=== PATIENT | female | born 1945 | race Caucasian/White ===

== ENCOUNTER 2017-03-26 21:09 | Inpatient (IN) | payer OTHER, MEDICARE ==
[~2017-03-26] VITALS: Ht 165.1 cm; Wt 112.8 kg
[2017-03-26 21:14] VITALS: PULSE 132; RESP 18; O2SAT 98
[2017-03-26 21:23] VITALS: BP 129/58; PULSE 133; RESP 17; O2SAT 98
[2017-03-26] MEDS ORDERED: METF1000 PO (21:34)
[2017-03-26] MEDS ORDERED: BENZ100 PO (21:34)
[2017-03-26] MEDS ORDERED: VENTAER INH (21:34)
[2017-03-26] MEDS ORDERED: MAGN400T24 (21:34)
[2017-03-26] MEDS ORDERED: INSU1INJ13 SQ (21:34)
[2017-03-26] MEDS ORDERED: APIX5TAB PO (21:34)
[2017-03-26] MEDS ORDERED: LISI20TA3 PO (21:34)
[2017-03-26] MEDS ORDERED: CARD180C5 PO (21:34)
[2017-03-26] MEDS ORDERED: LEVO500T8 PO (21:34)
[2017-03-26] MEDS ORDERED: SIMV20TA PO (21:34)
[2017-03-26 21:40] VITALS: RESP 19; O2SAT 98
[2017-03-26] MEDS ORDERED: DILTIAZEM HCL 25 MG/5 ML VIAL IV PUSH ONE (21:45)
[2017-03-26] MEDS: DILTIAZEM INJ 125 MG in SODIUM CHLORIDE 0.9% INJ 100 ML IV PRN (21:51)
[2017-03-26 21:55] LABS: AUTOMATED NEUTROPHIL # 4.9 TH/MM3 (1.8-7.7); BASOPHIL % 0.2 % (0.0-2.0); EOSINOPHIL # 0.1 TH/MM3 (0-0.4); EOSINOPHIL % 1.4 % (0.0-4.0); HEMATOCRIT 35.2 % (35.0-46.0); HEMOGLOBIN 10.8 GM/DL (11.6-15.3); LYMPH % 23.5 % (9.0-44.0); LYMPHOCYTE # 1.7 TH/MM3 (1.0-4.8); MEAN CELL VOLUME 63.4 FL (80.0-100.0); MEAN CORPUSCULAR HEMOGLOBIN 19.4 PG (27.0-34.0); MEAN CORPUSCULAR HGB CONC 30.6 % (32.0-36.0); MEAN PLATELET VOLUME 8.9 FL (7.0-11.0); MONO % 9.3 % (0.0-8.0); MONOCYTE # 0.7 TH/MM3 (0-0.9); NEUT % 65.6 % (16.0-70.0); PLATELET COUNT 134 TH/MM3 (150-450); RED BLOOD COUNT 5.55 MIL/MM3 (4.00-5.30); RED CELL DISTRIBUTION WIDTH 19.3 % (11.6-17.2); WHITE BLOOD COUNT 7.4 TH/MM3 (4.0-11.0)
[2017-03-26 22:09] LABS: BICARBONATE 23.2 MEQ/L (21.0-32.0); BLOOD UREA NITROGEN 37 MG/DL (7-18); CALCIUM 8.9 MG/DL (8.5-10.1); CHLORIDE 106 MEQ/L (98-107); CREATININE 1.98 MG/DL (0.50-1.00); GLOMERULAR FILTRATION RATE 25 ML/MIN (>89); GLUCOSE,RANDOM 93 MG/DL (74-106); INTERNATIONAL NORMALIZED RATIO 1.1 RATIO; MAGNESIUM 2.3 MG/DL (1.5-2.5); PROTHROMBIN TIME - PATIENT 11.4 SEC (9.8-11.6); SODIUM (NA) 140 MEQ/L (136-145)
[2017-03-26 22:13] LABS: TROPONIN I LESS THAN 0.02 NG/ML (0.02-0.05)
--- NOTE | 2017-03-26 22:13 | RADRPT ---
EXAM DATE/TIME: 03/26/2017 22:02 [place] COMPARISON: No previous studies available for comparison. INDICATIONS : Short of breath. MEDICAL HISTORY : A-fib. Bronchitis. SURGICAL HISTORY : None. ENCOUNTER: Initial ACUITY: 1 day PAIN SCORE: 3/10 LOCATION: Bilateral chest FINDINGS: The lungs are clear without infiltrate, nodule, or mass. There is no appreciable pleural effusion fo r technique. Heart and mediastinum are unremarkable. CONCLUSION: No acute cardiopulmonary disease. Ryan Damico MD on March 26, 2017 at 22:11 Board Certified Radiologist. This report was verified electronically.
--- NOTE | 2017-03-26 22:19 | PD ---
HPI Chief Complaint: Cardiac Complaint Time Seen by Provider: 21:23 Travel History International Travel<30 days: No Contact w/Intl Traveler<30days: No Traveled to known affect area: No History of Present Illness HPI This is a 72-year-old female with a history of hypertension, hyperlipidemia diabetes mellitus, who presents here with A. fib with RVR. Patient was scheduled to have an ablation at [facility] today however they postponed because she is currently being treated for bronchitis with antibiotics. Patient reports palpitations and shortness of breath. She denies any chest pain , chest pressure. Currently she has a heart rate in the 120s 130s. She is currently taking diltiazem. PFSH Past Medical History Atrial Fibrillation: Yes Diabetes: Yes Patient Takes Glucophage: Yes Hypertension: Yes ?: Not Past Surgical History Hysterectomy: Yes Neurologic Surgery: Yes (LAMINECTOMY) Social History Alcohol Use: No Tobacco Use: No Substance Use: No Allergies-Medications (Allergen,Severity, Reaction): Coded Allergies: No Known Allergies (Unverified , 03/26/17) Reported Meds & Prescriptions Reported Meds & Active Scripts Active Reported Tresiba Flextouch Pen Inj (Insulin Degludec Inj) 600 unit/3 ML Pen 1 Units SQ Eliquis (Apixaban) 5 Mg Tab 5 Mg PO BID Magnesium (Magnesium Oxide) 400 Mg Tablet Simvastatin 20 Mg Tab 20 Mg PO DAILY Lisinopril-Hctz 20-25 Mg Tab 1 Tab PO DAILY Metformin (Metformin HCl) 1,000 Mg Tab 1,000 Mg PO BIDPC Cardizem CD 24 HR (Diltiazem CD 24 HR) 180 Mg Caper 180 Mg PO DAILY Ventolin Hfa 18 GM Inh (Albuterol Sulfate) 90 Mcg/Act Aer 2 Puff INH Q4H PRN Tessalon Perles (Benzonatate) 100 Mg Cap 200 Mg PO TID PRN Levofloxacin 500 Mg Tablet 500 Mg PO DAILY Review of Systems Except as stated in HPI: all other systems reviewed are Neg General / Constitutional: No: Fever, Chills HENT: No: Headaches, Lightheadedness Cardiovascular: Positive: Palpitations, Irregular Rhythm, No: Chest Pain or Discomfort Respiratory: Positive: Shortness of Breath, No: Cough Gastrointestinal: No: Nausea, Vomiting, Abdominal Pain Genitourinary: No: Frequency, Dysuria Musculoskeletal: No: Weakness, Pain Neurologic: No: Weakness, Dizziness, Headache Physical Exam Narrative GENERAL: Developed well-nourished female in no acute respiratory distress. SKIN: Focused skin assessment warm/dry. HEAD: Atraumatic. Normocephalic. EYES: Pupils equal and round. No scleral icterus. No injection or drainage. ENT: No nasal bleeding or discharge. Mucous membranes pink and moist. NECK: Trachea midline. No JVD. CARDIOVASCULAR: Irregularly irregular with a rate in the 130s. No murmur appreciated. RESPIRATORY: No accessory muscle use. Clear to auscultation. Breath sounds equal bilaterally. ABDOMEN: Hepatic and splenic margins not palpable. MUSCULOSKELETAL: No obvious deformities. No clubbing. No cyanosis. No edema. NEUROLOGICAL: Awake and alert. No obvious cranial nerve deficits. Motor grossly within normal limits. Normal speech. PSYCHIATRIC: Appropriate mood and affect; insight and judgment normal. Data Data Last Documented VS Vital Signs Date Time Temp Pulse Resp B/P (MAP) Pulse Ox O2 Delivery O2 Flow Rate FiO2 03/26/17 21:51 124 128/68 03/26/17 21:40 19 98 Room Air Orders Orders Complete Blood Count With Diff (03/26/17 21:29) Basic Metabolic Panel (Bmp) (03/26/17 21:29) Ckmb (Isoenzyme) Profile (03/26/17 21:29) Troponin I (03/26/17 21:29) Prothrombin Time / Inr (Pt) (03/26/17 21:29) Act Partial Throm Time (Ptt) (03/26/17 21:29) Magnesium (Mg) (03/26/17 21:29) Chest, Single Ap (03/26/17 21:29) Iv Access Insert/Monitor (03/26/17 21:29) Ecg Monitoring (03/26/17 21:29) Oximetry (03/26/17 21:29) Diltiazem Inj (Cardizem Inj) (03/26/17 21:30) Diltiazem Inj (Cardizem Inj) (03/26/17 21:45) Sodium Chlor 0.9% 1000 Ml Inj (Ns 1000 M (03/26/17 23:00) Labs Laboratory Tests Test 03/26/17 21:40 White Blood Count 7.4 TH/MM3 Red Blood Count 5.55 MIL/MM3 Hemoglobin 10.8 GM/DL Hematocrit 35.2 % Mean Corpuscular Volume 63.4 FL Mean Corpuscular Hemoglobin 19.4 PG Mean Corpuscular Hemoglobin Concent 30.6 % Red Cell Distribution Width 19.3 % Platelet Count 134 TH/MM3 Mean Platelet Volume 8.9 FL Neutrophils (%) (Auto) 65.6 % Lymphocytes (%) (Auto) 23.5 % Monocytes (%) (Auto) 9.3 % Eosinophils (%) (Auto) 1.4 % Basophils (%) (Auto) 0.2 % Neutrophils # (Auto) 4.9 TH/MM3 Lymphocytes # (Auto) 1.7 TH/MM3 Monocytes # (Auto) 0.7 TH/MM3 Eosinophils # (Auto) 0.1 TH/MM3 Basophils # (Auto) 0.0 TH/MM3 CBC Comment DIFF FINAL Differential Comment Prothrombin Time 11.4 SEC Prothromb Time International Ratio 1.1 RATIO Activated Partial Thromboplast Time 31.0 SEC Blood Urea Nitrogen 37 MG/DL Creatinine 1.98 MG/DL Random Glucose 93 MG/DL Calcium Level 8.9 MG/DL Magnesium Level 2.3 MG/DL Sodium Level 140 MEQ/L Potassium Level 4.5 MEQ/L Chloride Level 106 MEQ/L Carbon Dioxide Level 23.2 MEQ/L Anion Gap 11 MEQ/L Estimat Glomerular Filtration Rate 25 ML/MIN Total Creatine Kinase 51 U/L Troponin I LESS THAN 0.02 NG/ML MDM Medical Decision Making Medical Screen Exam Complete: Yes Emergency Medical Condition: Yes Differential Diagnosis A. fib with RVR versus metabolic drainage been versus anemia versus sinus tachycardia Narrative Course 72-year-old female with a history of A. fib, as stated with complaints of palpitations and shortness of breath. The patient has A. fib with RVR. She's been placed on diltiazem drip. She's also been given a bolus prior to the drip. She'll be admitted to the hospital. Her it security project manager Dr. Daily. She is noted to have renal insufficiency. Cardiac enzymes are within normal limits. His was discussed with Dr. Xie, [facility], who agrees with the above admission. She was given 1 L of IV fluid as it does look like she possibly has prerenal azotemia as well as renal insufficiency. Diagnosis Primary Impression: Atrial fibrillation with rapid ventricular response Additional Impressions: Acute on chronic renal insufficiency Diabetes mellitus Hypertension Admitting Information Admitting Physician Requests: Admit Dino Corado MD Mar 26, 2017 22:19
[2017-03-26] MEDS ORDERED: SODIUM CHLOR 0.9% 1000 ML INJ 1,000 ML IV ONE (23:00)
[2017-03-26] MEDS ORDERED: MAGNESIUM HYDROXIDE SUSP 30 ML CUP PO PRN (23:30)
[2017-03-26] MEDS ORDERED: DEXTROSE 50% IN WATER 50 ML VIAL(D50) IV PUSH PRN (23:30)
[2017-03-26] MEDS ORDERED: ACETAMINOPHEN 325 MG TAB PO PRN (23:30)
[2017-03-26] MEDS ORDERED: GLUCAGON 1 MG/ML VIAL OTHER PRN (23:30)
[2017-03-26] MEDS ORDERED: SENNOSIDES 8.6 MG TAB PO PRN (23:30)
[2017-03-26] MEDS ORDERED: SODIUM CHLORIDE 0.9% FLUSH 10 ML FLUSH IV FLUSH PRN (23:30)
[2017-03-26] MEDS ORDERED: ONDANSETRON HCL 4 MG/2 ML VIAL IVP PRN (23:30)
[2017-03-26] MEDS ORDERED: NALOXONE HCL 0.4 MG/ML AMP IV PUSH PRN (23:30)
[2017-03-26] MEDS ORDERED: LACTULOSE SYRUP 20 GM/30 ML CUP PO PRN (23:30)
[2017-03-26] MEDS ORDERED: BISACODYL 10 MG SUPP RECTAL PRN (23:30)
--- NOTE | 2017-03-26 23:30 | HHI.HP ---
[facility] Primary Care Physician Radha Duke M.D. Admission Diagnosis afib with rvr, acute on chronic renal insufficiency, htn, dm Diagnoses: Travel History International Travel<30 Days: No Contact w/Intl Traveler <30 Da: No Traveled to Known Affected Are: No History of Present Illness 72-year-old female with a past medical history significant for atrial fibrillation anticoagulated on Eliquis, insulin-dependent diabetes mellitus, hypertension and hyperlipidemia presents to the emergency department for evaluation of atrial fibrillation. The patient reports that she awoke around 2 AM this morning with palpitations. She endorses associated shortness of breath and dizziness. Denies any chest pain/pressure. The patient is currently taking Levaquin for a bronchitis with improvement in her symptoms. She was scheduled to have an ablation done at [place] today which was canceled secondary to her bronchitis. Laboratory values are remarkable for a BUN/creatinine of 37/ 1.98 (baseline creatinine 0.87 done in 2014). Troponin negative. EKG showed atrial fibrillation with rapid ventricular response, no ST segment elevations or depressions. Vital signs on arrival: Pulse 132, respiratory rate 18, blood pressure 129/58, pulse ox 98% on room air. Review of Systems Denies fever or chills Denies blurry vision, otorrhea, rhinorrhea Denies sore throat and cough Positive heart palpitations and shortness of breath No abdominal pain Denies constipation/diarrhea/nausea/vomiting Denies muscle pain/weakness No rashes Past Family Social History Past Medical History Atrial fibrillation anticoagulated on Eliquis Insulin-dependent diabetes mellitus Hypertension Hyperlipidemia Past Surgical History Knee replacement 3 Right femur fracture Partial hysterectomy Laminectomy Reported Medications Reported Meds & Active Scripts Active Reported Tresiba Flextouch Pen Inj (Insulin Degludec Inj) 600 unit/3 ML Pen 1 Units SQ Eliquis (Apixaban) 5 Mg Tab 5 Mg PO BID Magnesium (Magnesium Oxide) 400 Mg Tablet Simvastatin 20 Mg Tab 20 Mg PO DAILY Lisinopril-Hctz 20-25 Mg Tab 1 Tab PO DAILY Metformin (Metformin HCl) 1,000 Mg Tab 1,000 Mg PO BIDPC Cardizem CD 24 HR (Diltiazem CD 24 HR) 180 Mg Caper 180 Mg PO DAILY Ventolin Hfa 18 GM Inh (Albuterol Sulfate) 90 Mcg/Act Aer 2 Puff INH Q4H PRN Tessalon Perles (Benzonatate) 100 Mg Cap 200 Mg PO TID PRN Levofloxacin 500 Mg Tablet 500 Mg PO DAILY Allergies: Coded Allergies: No Known Allergies (Unverified , 03/26/17) Family History Mother with coronary artery disease. Social History Denies alcohol, tobacco and illicit drugs Physical Exam Vital Signs Vital Signs Date Time Temp Pulse Resp B/P (MAP) Pulse Ox O2 Delivery O2 Flow Rate FiO2 03/26/17 21:51 124 128/68 03/26/17 21:40 19 98 Room Air 03/26/17 21:24 133 17 98 Room Air 03/26/17 21:23 133 17 129/58 (81) 98 03/26/17 21:14 132 18 98 Physical Exam GENERAL: female lying in bed SKIN: No rashes, ecchymoses or lesions. Cool and dry. HEAD: Atraumatic. Normocephalic. No temporal or scalp tenderness. EYES: Pupils equal round and reactive. Extraocular motions intact. No scleral icterus. No injection or drainage. ENT: Nose without bleeding, purulent drainage or septal hematoma. Throat without erythema, tonsillar hypertrophy or exudate. Uvula midline. Airway patent. NECK: Trachea midline. No JVD or lymphadenopathy. Supple, nontender, no meningeal signs. CARDIOVASCULAR: Tachycardic. Irregularly irregular rhythm without murmurs, gallops, or rubs. RESPIRATORY: Clear to auscultation. Breath sounds equal bilaterally. No wheezes , rales, or rhonchi. GASTROINTESTINAL: Abdomen soft, non-tender, nondistended. No hepato-splenomegaly , or palpable masses. No guarding. MUSCULOSKELETAL: Extremities without clubbing, cyanosis, or edema. No joint tenderness, effusion, or edema noted. No calf tenderness. NEUROLOGICAL: Awake and alert. Cranial nerves II through XII intact. Motor and sensory grossly within normal limits. Normal speech. Laboratory Laboratory Tests Test 03/26/17 21:40 White Blood Count 7.4 Red Blood Count 5.55 Hemoglobin 10.8 Hematocrit 35.2 Mean Corpuscular Volume 63.4 Mean Corpuscular Hemoglobin 19.4 Mean Corpuscular Hemoglobin Concent 30.6 Red Cell Distribution Width 19.3 Platelet Count 134 Mean Platelet Volume 8.9 Neutrophils (%) (Auto) 65.6 Lymphocytes (%) (Auto) 23.5 Monocytes (%) (Auto) 9.3 Eosinophils (%) (Auto) 1.4 Basophils (%) (Auto) 0.2 Neutrophils # (Auto) 4.9 Lymphocytes # (Auto) 1.7 Monocytes # (Auto) 0.7 Eosinophils # (Auto) 0.1 Basophils # (Auto) 0.0 CBC Comment DIFF FINAL Differential Comment Prothrombin Time 11.4 Prothromb Time International Ratio 1.1 Activated Partial Thromboplast Time 31.0 Blood Urea Nitrogen 37 Creatinine 1.98 Random Glucose 93 Calcium Level 8.9 Magnesium Level 2.3 Sodium Level 140 Potassium Level 4.5 Chloride Level 106 Carbon Dioxide Level 23.2 Anion Gap 11 Estimat Glomerular Filtration Rate 25 Total Creatine Kinase 51 Troponin I LESS THAN 0.02 Result Diagram: 03/26/17213903/26/172139 Caprini VTE Risk Assessment Caprini VTE Risk Assessment: Mod/High Risk (score >= 2) Caprini Risk Assessment Model Point Value = 1 Point Value = 2 Point Value = 3 Point Value = 5 Age 41-60 Minor surgery BMI > 25 kg/m2 Swollen legs Varicose veins or History of unexplained or recurrent spontaneous Oral contraceptives or hormone replacement Sepsis (< 1 month) Serious lung disease, including pneumonia (< 1 month) Abnormal pulmonary function Acute myocardial infarction Congestive heart failure (< 1 month) History of inflammatory bowel disease Medical patient at bed rest Age 61-74 Arthroscopic surgery Major open surgery (> 45 min) Laparoscopic surgery (> 45 min) Malignancy Confined to bed (> 72 hours) Immobilizing plaster cast Central venous access Age >= 75 History of VTE Family history of VTE Factor V Leiden Prothrombin [id number] Lupus anticoagulant Anticardiolipin antibodies Elevated serum homocysteine Heparin-induced thrombocytopenia Other congenital or acquired thrombophilia Stroke (< 1 month) Elective arthroplasty Hip, pelvis, or leg fracture Acute spinal cord injury (< 1 month) Prophylaxis Regimen Total Risk Factor Score Risk Level Prophylaxis Regimen 0-1 Low Early ambulation 2 Moderate Order ONE of the following: *Sequential Compression Device (SCD) *Heparin 5000 units SQ BID 3-4 Higher Order ONE of the following medications: *Heparin 5000 units SQ TID *Enoxaparin/Lovenox 40 mg SQ daily (WT < 150 kg, CrCl > 30 mL/min) *Enoxaparin/Lovenox 30 mg SQ daily (WT < 150 kg, CrCl > 10-29 mL/min) *Enoxaparin/Lovenox 30 mg SQ BID (WT < 150 kg, CrCl > 30 mL/min) AND/OR *Sequential Compression Device (SCD) 5 or more Highest Order ONE of the following medications: *Heparin 5000 units SQ TID (Preferred with Epidurals) *Enoxaparin/Lovenox 40 mg SQ daily (WT < 150 kg, CrCl > 30 mL/min) *Enoxaparin/Lovenox 30 mg SQ daily (WT < 150 kg, CrCl > 10-29 mL/min) *Enoxaparin/Lovenox 30 mg SQ BID (WT < 150 kg, CrCl > 30 mL/min) AND *Sequential Compression Device (SCD) Assessment and Plan Assessment and Plan Assessment/plan: 1. Atrial fibrillation with rapid ventricular response EKG shows A. fib with RVR, pulse 127, reviewed by me No ST segment elevations or depressions Initial troponin negative, no chest pain Patient with known history of A. fib, scheduled for ablation today Diltiazem drip, wean as tolerated Continue [facility] Patient's grinder carbon plant is Dr. Daily, consulted. Appreciate recommendations 2. MICHEL BUN/creatinine 37/1.98, Cr 0.87 in 2013 IV fluid hydration Monitor renal function 3. Bronchitis Improving No leukocytosis, lungs CTAB Continue Levaquin 4. Diabetes mellitus Continue long-acting insulin once medication reconciliation complete SSI Monitor blood glucose 5. Hypertension/hyperlipidemia Continue home medications FEN Heart healthy diabetic diet Electrolytes: monitor and replete prn NS at 75 cc/hr Eliqu Physician Certification 2 Midnight Certification Type: Admission for Inpatient Services Order for Inpatient Services The services are ordered in accordance with Medicare regulations or non- Medicare payer requirements, as applicable. In the case of services not specified as inpatient-only, they are appropriately provided as inpatient services in accordance with the 2-midnight benchmark. Estimated LOS (days): 2 2 days is the estimated time the patient will need to remain in the hospital, assuming treatment plan goals are met and no additional complications. Post-Hospital Plan: Home Callie Xie MD Mar 26, 2017 23:30
[2017-03-27] VITALS (11 sets, daily range): BP systolic 105–122; BP diastolic 56–73; PULSE 82–120; RESP 16–18; TEMP 98–99.2; O2SAT 96–100
[2017-03-27] MEDS: SODIUM CHLOR 0.9% 1000 ML INJ 1,000 ML IV SCH ×2 (00:55→13:35)
[2017-03-27] MEDS: INSULIN ASPART SUPPLEMENTAL SCALE SQ SCH ×4 (07:54→20:39)
[2017-03-27] MEDS: LEVOFLOXACIN 500 MG TAB PO SCH (07:56)
[2017-03-27] MEDS: DOCUSATE SODIUM 50 MG/SENNA 8.6 MG TAB PO SCH ×2 (07:56→20:32)
[2017-03-27] MEDS: PRAVASTATIN SOD 40 MG TAB PO SCH (07:57)
[2017-03-27] MEDS: APIXABAN 5 MG TABLET PO SCH ×2 (07:57→20:32)
[2017-03-27] MEDS: SODIUM CHLORIDE 0.9% FLUSH 10 ML FLUSH IV FLUSH SCH ×2 (07:58→20:32)
[2017-03-27 08:44] LABS: AUTOMATED NEUTROPHIL # 2.1 TH/MM3 (1.8-7.7); BASOPHIL % 0.5 % (0.0-2.0); EOSINOPHIL # 0.1 TH/MM3 (0-0.4); HEMATOCRIT 29.7 % (35.0-46.0); HEMOGLOBIN 9.3 GM/DL (11.6-15.3); LYMPH % 30.6 % (9.0-44.0); LYMPHOCYTE # 1.1 TH/MM3 (1.0-4.8); MEAN CELL VOLUME 63.1 FL (80.0-100.0); MEAN CORPUSCULAR HEMOGLOBIN 19.7 PG (27.0-34.0); MEAN CORPUSCULAR HGB CONC 31.3 % (32.0-36.0); MEAN PLATELET VOLUME 9.1 FL (7.0-11.0); MONO % 10.5 % (0.0-8.0); MONOCYTE # 0.4 TH/MM3 (0-0.9); NEUT % 56.4 % (16.0-70.0); PLATELET COUNT 90 TH/MM3 (150-450); RED BLOOD COUNT 4.72 MIL/MM3 (4.00-5.30); RED CELL DISTRIBUTION WIDTH 19.2 % (11.6-17.2); WHITE BLOOD COUNT 3.7 TH/MM3 (4.0-11.0)
[2017-03-27] MEDS ORDERED: LISINOPRIL 20 MG TAB PO SCH (09:00)
[2017-03-27] MEDS ORDERED: NON-FORMULARY DRUG (Lisinopril-Hctz 1 TAB) PO SCH (09:00)
[2017-03-27] MEDS ORDERED: DILTIAZEM-CD 180 MG CAP ER PO SCH (09:00)
[2017-03-27] MEDS ORDERED: HYDROCHLOROTHIAZIDE 25 MG TAB PO SCH (09:00)
[2017-03-27 09:12] LABS: BICARBONATE 20.2 MEQ/L (21.0-32.0); CALCIUM 8.4 MG/DL (8.5-10.1); CREATININE 1.57 MG/DL (0.50-1.00); MAGNESIUM 2.1 MG/DL (1.5-2.5)
[2017-03-27 10:27] LABS: OVALOCYTES 1+ (NORMAL)
--- NOTE | 2017-03-27 12:30 | HHI.PR ---
Subjective Remarks Patient reports she is still having intermittent episodes of heart palpitations. No chest pain. Objective Vitals Vital Signs Date Time Temp Pulse Resp B/P (MAP) Pulse Ox O2 Delivery O2 Flow Rate FiO2 03/27/17 12:15 99.2 86 18 122/59 (80) 97 03/27/17 09:39 Room Air 03/27/17 09:38 97 03/27/17 08:17 98.4 120 18 111/56 (74) 98 03/27/17 06:53 98.4 92 16 105/59 (74) 97 03/27/17 04:00 Room Air 03/27/17 03:59 97 03/27/17 00:30 82 03/27/17 00:25 98.3 90 16 122/63 (82) 96 03/26/17 21:51 124 128/68 03/26/17 21:40 19 98 Room Air 03/26/17 21:24 133 17 98 Room Air 03/26/17 21:23 133 17 129/58 (81) 98 03/26/17 21:14 132 18 98 I/O 03/26/17 03/26/17 03/26/17 03/27/17 03/27/17 03/27/17 07:00 15:00 23:00 07:00 15:00 23:00 Intake Total 480 ml Balance 480 ml Intake Oral 480 ml Result Diagram: 03/27/1715 03/27/17614 Objective Remarks GENERAL: This is a well-nourished, well-developed patient, in no apparent distress. CARDIOVASCULAR: Rate around 110 and irregular rhythm without murmurs, gallops, or rubs. RESPIRATORY: Good respiratory efforts. Breath sounds equal and clear to auscultation bilaterally. GASTROINTESTINAL: Abdomen soft, non-tender, non-distended. Normal active bowel sounds MUSCULOSKELETAL: Extremities without cyanosis, or edema. NEURO: Alert & Oriented x4 to person, place, time, situation. Moves all ext x4 PSYCH: Appropriate mood and affect. A/P Assessment and Plan 72-year-old female admitted with A. fib with RVR and acute kidney injury Atrial fibrillation with RVR: - Patient with known history of A. fib and was supposed to have ablation at the [facility] but it was canceled due to bronchitis. - Continue diltiazem drip. Oral Cardizem. - Patient's radiological metallurgist is Dr. Daily, consulted. Appreciate recommendations - Continue Eliquis MICHEL: Likely secondary to above and mild dehydration. Improving. Continue to monitor. Bronchitis Improving No leukocytosis, lungs CTAB Continue Levaquin for a couple more days Diabetes mellitus Continue long-acting insulin once medication reconciliation complete SSI Monitor blood glucose Hypertension/hyperlipidemia Continue home medications FEN Heart healthy diabetic diet Electrolytes: monitor and replete prn NS at 75 cc/hr Enmanuel Graham MD Mar 27, 2017 12:30
--- NOTE | 2017-03-27 12:37 | PD.CONS ---
HPI Service Cardiology Consult Requested By Dr Xie Reason for Consult Afib RVR Primary Care Physician Radha Duke M.D. History of Present Illness The patient is a 72 year old female known to our office with a cardiac history of paroxysmal atrial fibrillation on Eliquis, HTN, obesity, HLD and diabetes. The patient was scheduled for ablation with KAJAL REES at [place] yesterday, be it was cancelled due to acute bronchitis. The patient was recently treated with albuterol and ABX for acute bronchitis. She presented to the hospital for palpitations and tachycardia concerning for recurrent atrial fibrillation and SOB yesterday. She was noted to have atrial fibrillation with elevated rate 132 bpm without evidence of CHF on CXR. Renal function was elevated. She was started on Cardizem gtt and rate has improved. She feels better today compared to yesterday. Her platelets and hemoglobin are a little low (Trena Red) Review of Systems Consitutional: DENIES: Fatigue, Fever, Chills, Weight gain, Weight loss Eyes: DENIES: Amaurosis Fugax, Change in vision HEENT: DENIES: Lightheadedness, Change in hearing Respiratory: COMPLAINS OF: Shortness of breath, DENIES: See HPI, Cough, Snoring , Wheezing, Sputum production Cardiovascular: COMPLAINS OF: Palpitations, Tachycardia, DENIES: See HPI, Chest pain, Syncope Gastrointestinal: DENIES: Nausea, Vomiting, Change in bowel habits, Reflux, Bloody stools, Melena Genitourinary: DENIES: Urinary incontinence, Difficulty voiding Integumentary: DENIES: Rash Neurologic: DENIES: Tingling or numbness, Memory problems, Poor Balance, Stroke symptoms Musculoskeletal: DENIES: Joint pain, Muscle pain, Limited range of motion, Back pain Psychiatric: DENIES: Anxiety, Depression, Sleep disturbances Hematologic: DENIES: Bruising tendencies, Bleeding tendencies Endocrine: DENIES: Weight gain, Weight loss, Thyroid disease (Trena Red ) Past Family Social History Allergies: Coded Allergies: No Known Allergies (Unverified , 03/26/17) Past Medical History See HPI Past Surgical History partial hysterectomy laminectomy 2 knee replacements Reported Medications Reported Meds & Active Scripts Active Reported Tresiba Flextouch Pen Inj (Insulin Degludec Inj) 600 unit/3 ML Pen 1 Units SQ Eliquis (Apixaban) 5 Mg Tab 5 Mg PO BID Magnesium (Magnesium Oxide) 400 Mg Tablet Simvastatin 20 Mg Tab 20 Mg PO DAILY Lisinopril-Hctz 20-25 Mg Tab 1 Tab PO DAILY Metformin (Metformin HCl) 1,000 Mg Tab 1,000 Mg PO BIDPC Cardizem CD 24 HR (Diltiazem CD 24 HR) 180 Mg Caper 180 Mg PO DAILY Ventolin Hfa 18 GM Inh (Albuterol Sulfate) 90 Mcg/Act Aer 2 Puff INH Q4H PRN Tessalon Perles (Benzonatate) 100 Mg Cap 200 Mg PO TID PRN Levofloxacin 500 Mg Tablet 500 Mg PO DAILY Active Ordered Medications Current Medications Medications (Trade) Dose Ordered Sig/Maya Route Start Time Stop Time Status Last Admin Diltiazem HCl 125 mg/Sodium Chloride 125 ml @ 5 mls/hr TITRATE PRN IV 03/26/17 21:30 03/26/17 21:51 (Eliquis) 5 mg BID PO 03/27/17 09:00 03/27/17 07:57 (Cardizem Cd) 180 mg DAILY PO 03/27/17 09:00 03/27/17 07:55 (Levaquin) 500 mg DAILY PO 03/27/17 09:00 03/27/17 07:56 (Pravachol) 40 mg DAILY PO 03/27/17 09:00 03/27/17 07:57 Sodium Chloride 1,000 ml @ 75 mls/hr [id number] IV 03/26/17 23:17 03/27/17 00:55 (NS Flush) 2 ml UNSCH PRN IV FLUSH 03/26/17 23:30 (NS Flush) 2 ml BID IV FLUSH 03/27/17 09:00 (Tylenol) 650 mg Q4H PRN PO 03/26/17 23:30 (Zofran Inj) 4 mg Q6H PRN IVP 03/26/17 23:30 (Narcan Inj) 0.4 mg UNSCH PRN IV PUSH 03/26/17 23:30 (Alicia-Colace) 1 tab BID PO 03/27/17 09:00 03/27/17 07:56 (Milk Of Magnesia Liq) 30 ml Q12H PRN PO 03/26/17 23:30 (Senokot) 17.2 mg Q12H PRN PO 03/26/17 23:30 (Dulcolax Supp) 10 mg DAILY PRN RECTAL 03/26/17 23:30 (Lactulose Liq) 30 ml DAILY PRN PO 03/26/17 23:30 (Prinivil) 20 mg DAILY PO 03/27/17 09:00 03/27/17 07:55 (Hydrodiuril) 25 mg DAILY PO 03/27/17 09:00 03/27/17 07:57 (D50w (Vial) Inj) 50 ml UNSCH PRN IV PUSH 03/26/17 23:30 (Glucagon Inj) 1 mg UNSCH PRN OTHER 03/26/17 23:30 (NovoLOG SUPPLEMENTAL SCALE) 1 ACHS SLIDING SCALE SQ 03/27/17 08:00 03/27/17 11:57 Family History mother had heart disease Social History lives with , no ETOH or tobacco (Trena Red) Physical Exam Vital Signs Vital Signs Date Time Temp Pulse Resp B/P (MAP) Pulse Ox O2 Delivery O2 Flow Rate FiO2 03/27/17 09:39 Room Air 03/27/17 09:38 97 03/27/17 08:17 98.4 120 18 111/56 (74) 98 03/27/17 06:53 98.4 92 16 105/59 (74) 97 03/27/17 04:00 Room Air 03/27/17 03:59 97 03/27/17 00:30 82 03/27/17 00:25 98.3 90 16 122/63 (82) 96 03/26/17 21:51 124 128/68 03/26/17 21:40 19 98 Room Air 03/26/17 21:24 133 17 98 Room Air 03/26/17 21:23 133 17 129/58 (81) 98 03/26/17 21:14 132 18 98 Physical Exam GENERAL: Overweight female rm 1417 SKIN: Warm and dry. HEAD: Atraumatic. Normocephalic. EYES: Pupils equal and round. No scleral icterus. No injection or drainage. ENT: No nasal bleeding or discharge. NECK: Trachea midline. No JVD. CARDIOVASCULAR: regular rate, irreg irreg RESPIRATORY: No accessory muscle use. Clear to auscultation. Breath sounds equal bilaterally. GASTROINTESTINAL: Abdomen soft, non-tender, nondistended. MUSCULOSKELETAL: Extremities without clubbing, cyanosis, or edema. No obvious deformities. NEUROLOGICAL: Awake and alert. No obvious cranial nerve deficits. Motor grossly within normal limits. Five out of 5 muscle strength in the arms and legs. Normal speech. PSYCHIATRIC: Appropriate mood and affect; insight and judgment normal. Laboratory Laboratory Tests Test 03/26/17 21:40 03/27/17 06:15 White Blood Count 7.4 3.7 Red Blood Count 5.55 4.72 Hemoglobin 10.8 9.3 Hematocrit 35.2 29.7 Mean Corpuscular Volume 63.4 63.1 Mean Corpuscular Hemoglobin 19.4 19.7 Mean Corpuscular Hemoglobin Concent 30.6 31.3 Red Cell Distribution Width 19.3 19.2 Platelet Count 134 90 Mean Platelet Volume 8.9 9.1 Neutrophils (%) (Auto) 65.6 56.4 Lymphocytes (%) (Auto) 23.5 30.6 Monocytes (%) (Auto) 9.3 10.5 Eosinophils (%) (Auto) 1.4 2.0 Basophils (%) (Auto) 0.2 0.5 Neutrophils # (Auto) 4.9 2.1 Lymphocytes # (Auto) 1.7 1.1 Monocytes # (Auto) 0.7 0.4 Eosinophils # (Auto) 0.1 0.1 Basophils # (Auto) 0.0 0.0 CBC Comment DIFF FINAL AUTO DIFF Differential Comment AUTO DIFF CONFIRMED Prothrombin Time 11.4 Prothromb Time International Ratio 1.1 Activated Partial Thromboplast Time 31.0 Blood Urea Nitrogen 37 31 Creatinine 1.98 1.57 Random Glucose 93 150 Calcium Level 8.9 8.4 Magnesium Level 2.3 2.1 Sodium Level 140 140 Potassium Level 4.5 3.9 Chloride Level 106 109 Carbon Dioxide Level 23.2 20.2 Anion Gap 11 11 Estimat Glomerular Filtration Rate 25 33 Total Creatine Kinase 51 Troponin I LESS THAN 0.02 Platelet Estimate LOW Platelet Morphology Comment NORMAL Ovalocytes 1+ (Trena Red) Result Diagram: 03/27/1761403/27/17614 Imaging Last 72 hours Impressions Chest X-Ray 03/26/174 Signed Impressions: Service Date/Time: Sunday, March 26, 2017 22:02 - CONCLUSION: No acute cardiopulmonary disease. Ryan Damico MD (Trena Red) Assessment and Plan Assessment and Plan Paroxysmal atrial fibrillation with atrial fibrillation with RVR on admission. On Eliquis Acute on chronic renal insufficiency Thrombocytopenia Plts 90 Microcytic anemia, ?thalassemia minor HTN HLD Diabetes PLAN Change to cardizem LA 180 BID Stop HCTZ Hold lisinopril until renal function improve Check TSH We will plan to rate control the patient and refer her back to [place] after discharge for EP study/afib ablation The patient was seen and evaluated by Dr Daily who completed face to face encounter and physical exam and participated with evaluation and management. (Trena Red) Assessment and Plan The exam, history, and the medical decision-making described in the above note were completed with the assistance of the mid-level provider. I reviewed and agree with the findings presented. I attest that I had a [id number] encounter with the patient on the same day, and personally performed and documented my assessment and findings in the medical record. Will control rate with oral meds and try and discharge. For afib ablation soon as o/p (Maddie Daily MD) Trena Red Mar 27, 2017 12:37 Maddie Daily MD Mar 28, 2017 18:18
[2017-03-27] MEDS: DILTIAZEM INJ 125 MG in SODIUM CHLORIDE 0.9% INJ 100 ML IV PRN (12:55)
[2017-03-27] MEDS: DILTIAZEM-CD 180 MG CAP ER PO SCH (20:32)
[2017-03-28] VITALS (11 sets, daily range): BP systolic 93–134; BP diastolic 54–63; PULSE 67–128; RESP 16–20; TEMP 97.2–98.7; O2SAT 95–98
[2017-03-28] MEDS: SODIUM CHLOR 0.9% 1000 ML INJ 1,000 ML IV SCH (01:57)
[2017-03-28 05:40] LABS: HEMATOCRIT 30.2 % (35.0-46.0); HEMOGLOBIN 9.5 GM/DL (11.6-15.3); MEAN CELL VOLUME 62.5 FL (80.0-100.0); MEAN CORPUSCULAR HEMOGLOBIN 19.6 PG (27.0-34.0); MEAN CORPUSCULAR HGB CONC 31.4 % (32.0-36.0); MEAN PLATELET VOLUME 9.1 FL (7.0-11.0); PLATELET COUNT 93 TH/MM3 (150-450); RED BLOOD COUNT 4.83 MIL/MM3 (4.00-5.30); RED CELL DISTRIBUTION WIDTH 19.5 % (11.6-17.2); WHITE BLOOD COUNT 4.1 TH/MM3 (4.0-11.0)
[2017-03-28 06:31] LABS: CALCIUM 8.3 MG/DL (8.5-10.1); CREATININE 1.18 MG/DL (0.50-1.00)
[2017-03-28] MEDS: LEVOFLOXACIN 500 MG TAB PO SCH (09:00)
[2017-03-28] MEDS: INSULIN ASPART SUPPLEMENTAL SCALE SQ SCH ×4 (09:11→21:00)
[2017-03-28] MEDS: DOCUSATE SODIUM 50 MG/SENNA 8.6 MG TAB PO SCH ×2 (09:11→21:00)
[2017-03-28] MEDS: DILTIAZEM-CD 180 MG CAP ER PO SCH ×2 (09:11→21:36)
[2017-03-28] MEDS: PRAVASTATIN SOD 40 MG TAB PO SCH (09:12)
[2017-03-28] MEDS: APIXABAN 5 MG TABLET PO SCH ×2 (09:12→21:36)
[2017-03-28] MEDS: SODIUM CHLORIDE 0.9% FLUSH 10 ML FLUSH IV FLUSH SCH ×2 (09:13→21:00)
[2017-03-28] MEDS: METOPROLOL TARTRATE 50 MG TAB PO SCH ×2 (12:31→21:35)
--- NOTE | 2017-03-28 15:44 | PD.CARD.PN ---
Subjective Subjective Remarks The patient still has symptomatic atrial fibrillation with episodes of RVR (Trena Red) Objective Medications Current Medications Medications (Trade) Dose Ordered Sig/Maya Route Start Time Stop Time Status Last Admin Diltiazem HCl 125 mg/Sodium Chloride 125 ml @ 5 mls/hr TITRATE PRN IV 03/26/17 21:30 03/27/17 12:55 (Eliquis) 5 mg BID PO 03/27/17 09:00 03/28/17 09:12 (Pravachol) 40 mg DAILY PO 03/27/17 09:00 03/28/17 09:12 (NS Flush) 2 ml UNSCH PRN IV FLUSH 03/26/17 23:30 (NS Flush) 2 ml BID IV FLUSH 03/27/17 09:00 03/28/17 09:13 (Tylenol) 650 mg Q4H PRN PO 03/26/17 23:30 (Zofran Inj) 4 mg Q6H PRN IVP 03/26/17 23:30 (Narcan Inj) 0.4 mg UNSCH PRN IV PUSH 03/26/17 23:30 (Alicia-Colace) 1 tab BID PO 03/27/17 09:00 03/28/17 09:11 (Milk Of Magnesia Liq) 30 ml Q12H PRN PO 03/26/17 23:30 (Senokot) 17.2 mg Q12H PRN PO 03/26/17 23:30 (Dulcolax Supp) 10 mg DAILY PRN RECTAL 03/26/17 23:30 (Lactulose Liq) 30 ml DAILY PRN PO 03/26/17 23:30 (D50w (Vial) Inj) 50 ml UNSCH PRN IV PUSH 03/26/17 23:30 (Glucagon Inj) 1 mg UNSCH PRN OTHER 03/26/17 23:30 (NovoLOG SUPPLEMENTAL SCALE) 1 ACHS SLIDING SCALE SQ 03/27/17 08:00 03/28/17 12:32 (Cardizem Cd) 180 mg BID PO 03/27/17 21:00 03/28/17 09:11 (Lopressor) 50 mg Q12HR PO 03/28/17 10:45 03/28/17 12:31 Vital Signs / I&O Vital Signs Date Time Temp Pulse Resp B/P (MAP) Pulse Ox O2 Delivery O2 Flow Rate FiO2 03/28/17 12:06 98.0 88 20 115/59 (77) 96 03/28/17 12:00 111 03/28/17 09:00 83 03/28/17 09:00 97 Room Air 03/28/17 08:07 97.2 128 20 128/58 (81) 97 03/28/17 04:00 68 03/28/17 04:00 98.7 100 16 134/63 (86) 98 03/28/17 00:00 98.6 78 18 121/57 (78) 95 03/27/17 20:00 Room Air 03/27/17 20:00 98.0 99 18 111/64 (80) 100 03/27/17 19:56 93 03/27/17 16:17 98.3 96 18 120/73 (89) 97 I/O 03/27/17 03/27/17 03/27/17 03/28/17 03/28/17 03/28/17 07:00 15:00 23:00 07:00 15:00 23:00 Intake Total 480 ml 720 ml 1000 ml Output Total 2200 ml 2500 ml Balance 480 ml -1480 ml -2500 ml 1000 ml Intake Oral 480 ml 720 ml IV Total 1000 ml Output Urine Total 2200 ml 2500 ml # Bowel Movements 0 Physical Exam GENERAL: Elderly female SKIN: Warm and dry. HEAD: Normocephalic. EYES: No scleral icterus. No injection or drainage. NECK: Supple, trachea midline. . CARDIOVASCULAR: Regular rate, Irreg irreg RESPIRATORY: Breath sounds equal bilaterally. No accessory muscle use. GASTROINTESTINAL: Abdomen soft, non-tender, nondistended. MUSCULOSKELETAL: No cyanosis, or edema. BACK: Nontender without obvious deformity. Laboratory Laboratory Tests Test 03/28/17 04:24 White Blood Count 4.1 TH/MM3 Red Blood Count 4.83 MIL/MM3 Hemoglobin 9.5 GM/DL Hematocrit 30.2 % Mean Corpuscular Volume 62.5 FL Mean Corpuscular Hemoglobin 19.6 PG Mean Corpuscular Hemoglobin Concent 31.4 % Red Cell Distribution Width 19.5 % Platelet Count 93 TH/MM3 Mean Platelet Volume 9.1 FL Blood Urea Nitrogen 23 MG/DL Creatinine 1.18 MG/DL Random Glucose 165 MG/DL Calcium Level 8.3 MG/DL Sodium Level 141 MEQ/L Potassium Level 4.1 MEQ/L Chloride Level 110 MEQ/L Carbon Dioxide Level 23.0 MEQ/L Anion Gap 8 MEQ/L Estimat Glomerular Filtration Rate 45 ML/MIN Thyroid Stimulating Hormone 3rd Gen 3.210 uIU/ML Imaging Last 72 hours Impressions Chest X-Ray 03/26/172128 Signed Impressions: Service Date/Time: Sunday, March 26, 2017 22:02 - CONCLUSION: No acute cardiopulmonary disease. K. Kyle Damico MD (Trena Red) Assessment and Plan Assessment and Plan Atrial fibrillation with RVR on admission. Pending ablation with Dr Cooley. On Eliquis Resolving acute on chronic renal insufficiency Thrombocytopenia Microcytic anemia, ?thalassemia minor HTN HLD Diabetes PLAN Add metoprolol 50 mg BID Continue cardizem LA 180 BID and Eliquis Stop cardizem gtt Do not restart lisinopril or HCTZ due to recent MICHEL We will plan to rate control the patient and refer her back to [place] after discharge for EP study/afib ablation The patient was seen and evaluated by Dr Daily who completed face to face encounter and physical exam and participated with evaluation and management. (Trena Red) Assessment and Plan The exam, history, and the medical decision-making described in the above note were completed with the assistance of the mid-level provider. I reviewed and agree with the findings presented. I attest that I had a [id number] encounter with the patient on the same day, and personally performed and documented my assessment and findings in the medical record , For rate control then D/C, reviewed with PT.. (Maddie Daily MD) Trena Red Mar 28, 2017 15:44 Maddie Daily MD Mar 28, 2017 18:31
--- NOTE | 2017-03-28 16:36 | HHI.PR ---
Subjective Remarks Patient reports she is feeling better. Heart rate better controlled since she received a dose of metoprolol earlier today per cardiology. No shortness of breath or chest pain. Off Cardizem drip. Objective Vitals Vital Signs Date Time Temp Pulse Resp B/P (MAP) Pulse Ox O2 Delivery O2 Flow Rate FiO2 03/28/17 12:06 98.0 88 20 115/59 (77) 96 03/28/17 12:00 111 03/28/17 09:00 83 03/28/17 09:00 97 Room Air 03/28/17 08:07 97.2 128 20 128/58 (81) 97 03/28/17 04:00 68 03/28/17 04:00 98.7 100 16 134/63 (86) 98 03/28/17 00:00 98.6 78 18 121/57 (78) 95 03/27/17 20:00 Room Air 03/27/17 20:00 98.0 99 18 111/64 (80) 100 03/27/17 19:56 93 I/O 03/27/17 03/27/17 03/27/17 03/28/17 03/28/17 03/28/17 07:00 15:00 23:00 07:00 15:00 23:00 Intake Total 480 ml 720 ml 1000 ml Output Total 2200 ml 2500 ml Balance 480 ml -1480 ml -2500 ml 1000 ml Intake Oral 480 ml 720 ml IV Total 1000 ml Output Urine Total 2200 ml 2500 ml # Bowel Movements 0 Result Diagram: 03/28/17 0424 03/28/17 0424 Objective Remarks GENERAL: This is a well-nourished, well-developed patient, in no apparent distress. CARDIOVASCULAR: Rate around 80s and irregular rhythm without murmurs, gallops, or rubs. RESPIRATORY: Good respiratory efforts. Breath sounds equal and clear to auscultation bilaterally. GASTROINTESTINAL: Abdomen soft, non-tender, non-distended. Normal active bowel sounds MUSCULOSKELETAL: Extremities without cyanosis, or edema. NEURO: Alert & Oriented x4 to person, place, time, situation. Moves all ext x4 PSYCH: Appropriate mood and affect. A/P Assessment and Plan 72-year-old female admitted with A. fib with RVR and acute kidney injury Atrial fibrillation with RVR: - Patient with known history of A. fib and plan for outpatient ablation at the [facility]. -Appreciate cardiology following. Oral Cardizem titrated. Patient is off Cardizem drip. Metoprolol added today with better rate control. - Continue Eliquis - Continue to monitor on telemetry overnight. If rate remains controlled, will plan to discharge patient home if okay with cardiology. MICHEL: Likely secondary to above and mild dehydration. Improving. Continue to monitor. Bronchitis Improving No leukocytosis, lungs CTAB Patient is status post Levaquin. No further signs of infectious process. Discontinue Levaquin. Diabetes mellitus Continue long-acting insulin once medication reconciliation complete SSI Monitor blood glucose Hypertension/hyperlipidemia Continue home medications DVT prophylaxis Eliquis Discharge Planning Continue to monitor on telemetric. If rate is controlled tomorrow, likely discharge home. Enmanuel Gaxiola MD Mar 28, 2017 16:36
--- NOTE | 2017-03-28 23:31 | EKG ---
Date Performed: 03/26/2017 Time Performed: 21:20:25 PTAGE: 72 years EKG: ATRIAL FIBRILLATION WITH RAPID VENTRICULAR RESPONSE NONSPECIFIC ST & T-WAVE ABNORMALITY ABN ORMAL RHYTHM ECG NO PREVIOUS TRACING DOCTOR: Elayne Castillo Interpretating Date/Time 03/28/2017 23:30:56
[2017-03-29] VITALS: BP 101/54; PULSE 78; RESP 18; TEMP 97.8; O2SAT 97
[2017-03-29 03:50] VITALS: PULSE 60
[2017-03-29 04:00] VITALS: BP 139/67; PULSE 90; RESP 18; TEMP 98.1; O2SAT 98
[2017-03-29 08:00] VITALS: PULSE 85
[2017-03-29 08:07] VITALS: BP 128/55; PULSE 84; RESP 20; TEMP 98.5; O2SAT 95
[2017-03-29] MEDS: DOCUSATE SODIUM 50 MG/SENNA 8.6 MG TAB PO SCH (08:33)
[2017-03-29] MEDS: APIXABAN 5 MG TABLET PO SCH (08:33)
[2017-03-29] MEDS: INSULIN ASPART SUPPLEMENTAL SCALE SQ SCH (08:33)
[2017-03-29] MEDS: SODIUM CHLORIDE 0.9% FLUSH 10 ML FLUSH IV FLUSH SCH (08:33)
[2017-03-29] MEDS: METOPROLOL TARTRATE 50 MG TAB PO SCH (08:33)
[2017-03-29] MEDS: PRAVASTATIN SOD 40 MG TAB PO SCH (08:33)
[2017-03-29] MEDS: DILTIAZEM-CD 180 MG CAP ER PO SCH (08:34)
[2017-03-29] MEDS ORDERED: METO-309 PO (11:07)
[2017-03-29] MEDS ORDERED: CARD180C5 PO (11:07)
--- NOTE | 2017-03-29 11:09 | HHI.DCPOC ---
Discharge Care Plan Diagnosis: (1) Atrial fibrillation with rapid ventricular response (2) Hypertension (3) Diabetes mellitus (4) Acute on chronic renal insufficiency Goals to Promote Your Health * To prevent worsening of your condition and complications * To maintain your health at the optimal level Directions to Meet Your Goals Take your medications as prescribed Follow your dietary instruction Follow activity as directed Keep your appointments as scheduled Take your immunizations and boosters as scheduled If your symptoms worsen call your PCP, if no PCP go to Urgent Care Center or Emergency Room Smoking is Dangerous to Your Health. Avoid second hand smoke Call the 24-hour hour crisis hotline for domestic abuse at Enmanuel Gaxiola MD Mar 29, 2017 11:09
--- NOTE | 2017-03-29 11:20 | HHI.DS ---
Discharge Summary Admission Date Mar 26, 2017 at 23:17 Discharge Date: Mar 29, 2017 Admitting Diagnosis afib with rvr, acute on chronic renal insufficiency, htn, dm (1) Atrial fibrillation with rapid ventricular response ICD Code: I48.91 - Unspecified atrial fibrillation Status: Acute (2) Acute on chronic renal insufficiency ICD Code: N28.9 - Disorder of kidney and ureter, unspecified; N18.9 - Chronic kidney disease, unspecified Status: Acute (3) Hypertension ICD Code: I10 - Essential (primary) hypertension Status: Acute (4) Diabetes mellitus ICD Code: E11.9 - Type 2 diabetes mellitus without complications Status: Acute Procedures None Brief History - From Admission History of present illness from the admitting physician 72-year-old female with a past medical history significant for atrial fibrillation anticoagulated on Eliquis, insulin-dependent diabetes mellitus, hypertension and hyperlipidemia presents to the emergency department for evaluation of atrial fibrillation. The patient reports that she awoke around 2 AM this morning with palpitations. She endorses associated shortness of breath and dizziness. Denies any chest pain/pressure. The patient is currently taking Levaquin for a bronchitis with improvement in her symptoms. She was scheduled to have an ablation done at [facility] which was canceled secondary to her bronchitis. Laboratory values are remarkable for a BUN/creatinine of 37/ 1.98 (baseline creatinine 0.87 done in 2013). Troponin negative. EKG showed atrial fibrillation with rapid ventricular response, no ST segment elevations or depressions. Vital signs on arrival: Pulse 132, respiratory rate 18, blood pressure 129/58, pulse ox 98% on room air. CBC/BMP: 03/28/17 0424 03/28/17 0424 Significant Findings Laboratory Tests Test 03/26/17 21:40 03/27/17 06:15 03/28/17 04:24 Red Blood Count 5.55 MIL/MM3 (4.00-5.30) Hemoglobin 10.8 GM/DL (11.6-15.3) 9.3 GM/DL (11.6-15.3) 9.5 GM/DL (11.6-15.3) Mean Corpuscular Volume 63.4 FL (80.0-100.0) 63.1 FL (80.0-100.0) 62.5 FL (80.0-100.0) Mean Corpuscular Hemoglobin 19.4 PG (27.0-34.0) 19.7 PG (27.0-34.0) 19.6 PG (27.0-34.0) Mean Corpuscular Hemoglobin Concent 30.6 % (32.0-36.0) 31.3 % (32.0-36.0) 31.4 % (32.0-36.0) Red Cell Distribution Width 19.3 % (11.6-17.2) 19.2 % (11.6-17.2) 19.5 % (11.6-17.2) Platelet Count 134 TH/MM3 (150-450) 90 TH/MM3 (150-450) 93 TH/MM3 (150-450) Monocytes (%) (Auto) 9.3 % (0.0-8.0) 10.5 % (0.0-8.0) Activated Partial Thromboplast Time 31.0 SEC (24.3-30.1) Blood Urea Nitrogen 37 MG/DL (7-18) 31 MG/DL (7-18) 23 MG/DL (7-18) Creatinine 1.98 MG/DL (0.50-1.00) 1.57 MG/DL (0.50-1.00) 1.18 MG/DL (0.50-1.00) Estimat Glomerular Filtration Rate 25 ML/MIN (>89) 33 ML/MIN (>89) 45 ML/MIN (>89) Troponin I LESS THAN 0.02 NG/ML White Blood Count 3.7 TH/MM3 (4.0-11.0) Hematocrit 29.7 % (35.0-46.0) 30.2 % (35.0-46.0) Platelet Estimate LOW (NORMAL) Ovalocytes 1+ (NORMAL) Random Glucose 150 MG/DL (74-106) 165 MG/DL (74-106) Calcium Level 8.4 MG/DL (8.5-10.1) 8.3 MG/DL (8.5-10.1) Chloride Level 109 MEQ/L (98-107) 110 MEQ/L (98-107) Carbon Dioxide Level 20.2 MEQ/L (21.0-32.0) Imaging Last Impressions Chest X-Ray 03/26/172128 Signed Impressions: Service Date/Time: Sunday, March 26, 2017 22:02 - CONCLUSION: No acute cardiopulmonary disease. Ryan Damico MD PE at Discharge GENERAL: This is a well-nourished, well-developed patient, in no apparent distress. CARDIOVASCULAR: Rate around 80s and irregular rhythm without murmurs, gallops, or rubs. RESPIRATORY: Good respiratory efforts. Breath sounds equal and clear to auscultation bilaterally. GASTROINTESTINAL: Abdomen soft, non-tender, non-distended. Normal active bowel sounds MUSCULOSKELETAL: Extremities without cyanosis, or edema. NEURO: Alert & Oriented x4 to person, place, time, situation. Moves all ext x4 PSYCH: Appropriate mood and affect. Pt update on day of discharge Patient reports she is feeling much better. Heart rate is controlled. No shortness of breath or chest pain. Anxious to go home. Hospital Course 72-year-old female admitted with A. fib with RVR and acute kidney injury. The patient was admitted on a Cardizem drip. Cardiology followed the patient. Rate control medication were adjusted. Metoprolol added with better rate control. The patient is to continue on Eliquis. She is discharged on a new regimen per cardiology recommendations to include diltiazem twice daily and metoprolol twice daily. Acute kidney injury improved quickly. Patient came in with a diagnosis of bronchitis but did not exhibit any further signs of infection. Antibiotics were discontinued. She is discharged home in good condition. Patient to follow-up outpatient with cardiology and [facility] for eventual ablation. Pt Condition on Discharge: Good Discharge Disposition: Discharge Home Discharge Time: <= 30 minutes Discharge Instructions DIET: Follow Instructions for: Heart Healthy Diet Activities you can perform: Regular-No Restrictions Follow up Referrals: Cardiology - 2 Weeks New Medications: Metoprolol Tartrate (Lopressor) 50 Mg Tab 50 MG PO Q12HR, #60 TAB Changed Medications: Diltiazem CD 24 HR (Cardizem CD 24 HR) 180 Mg Caper 180 MG PO BID, #60 CAP 0 Refills (Changed from: DAILY; 30) Continued Medications: Albuterol 18 GM Inh (Ventolin Hfa 18 GM Inh) 90 Mcg/Act Aer 2 PUFF INH Q4H PRN for SHORTNESS OF BREATH, #1 INHALER 0 Refills Apixaban (Eliquis) 5 Mg Tab 5 MG PO BID for Blood Clot Prevention, #60 TAB 0 Refills Benzonatate (Tessalon Perles) 100 Mg Cap 200 MG PO TID PRN for COUGH, CAP 0 Refills Insulin Degludec Inj (Tresiba Flextouch Pen Inj) 600 unit/3 ML Pen 1 UNITS SQ for Blood Sugar Management, #9 ML 0 Refills Lisinopril-Hctz (Lisinopril-Hctz) 20-25 Mg Tab 1 TAB PO DAILY for Blood Pressure Management, #30 TAB 0 Refills Magnesium Oxide (Magnesium) 400 Mg Tablet Metformin (Metformin) 1,000 Mg Tab 1000 MG PO BIDPC for Blood Sugar Management, #60 TAB 0 Refills Simvastatin (Simvastatin) 20 Mg Tab 20 MG PO DAILY for Cholesterol Management, #30 TAB 0 Refills Discontinued Medications: Levofloxacin (Levofloxacin) 500 Mg Tablet 500 MG PO DAILY for Infection, TAB 0 Refills Enmanuel Gaxiola MD Mar 29, 2017 11:19
== END 2017-03-29 16:40 | disposition home or self-care (01) | DRG 309 ==
LOC: NEPE 21:09 → NEDA 23:17 → N04B 23:58
PROVIDERS: ADMIT Family Medicine; ATTEND Family Medicine
DX: I48.0 Paroxysmal atrial fibrillation (principal); N17.9 Acute kidney failure, unspecified; E11.22 Type 2 diabetes mellitus with diabetic chronic kidney disease; D69.6 Thrombocytopenia, unspecified; E86.0 Dehydration; I12.9 Hypertensive chronic kidney disease with stage 1 through stage 4 chronic kidney disease, or unspecified chronic kidney disease; N18.9 Chronic kidney disease, unspecified; E78.5 Hyperlipidemia, unspecified; Z79.84 Long term (current) use of oral hypoglycemic drugs; Z79.01 Long term (current) use of anticoagulants; J40 Bronchitis, not specified as acute or chronic; Z96.659 Presence of unspecified artificial knee joint; Z82.49 Family history of ischemic heart disease and other diseases of the circulatory system; D56.3 Thalassemia minor; D50.9 Iron deficiency anemia, unspecified
CPT/HCPCS: 71045; 80048; 82550; 82948; 83735; 84443; 84484; 85025; 85027; 85610; 85730; 93005; 96365; 96375; J1815; J2405; J7030

== ENCOUNTER 2017-04-05 13:27 | Observation (INO) | payer MEDICARE, OTHER ==
[~2017-04-05] VITALS: Ht 165.1 cm; Wt 113.0 kg
[~2017-04-05 13:27] MED LIST: APIX5TAB PO; BENZ100 PO; CARD180C5 PO; INSU1INJ13 SQ; LISI20TA3 PO; MAGN400T24; METF1000 PO; METO-309 PO; SIMV20TA PO; VENTAER INH
[2017-04-05 13:29] VITALS: BP 145/67; PULSE 72; RESP 20; TEMP 99.1; O2SAT 95
[2017-04-05 14:11] LABS: AUTOMATED NEUTROPHIL # 7.1 TH/MM3 (1.8-7.7); BASOPHIL % 0.3 % (0.0-2.0); EOSINOPHIL % 0.5 % (0.0-4.0); HEMATOCRIT 30.5 % (35.0-46.0); HEMOGLOBIN 9.5 GM/DL (11.6-15.3); LYMPH % 6.8 % (9.0-44.0); LYMPHOCYTE # 0.6 TH/MM3 (1.0-4.8); MEAN CELL VOLUME 63.5 FL (80.0-100.0); MEAN CORPUSCULAR HEMOGLOBIN 19.7 PG (27.0-34.0); MEAN PLATELET VOLUME 8.5 FL (7.0-11.0); MONO % 11.7 % (0.0-8.0); NEUT % 80.7 % (16.0-70.0); PLATELET COUNT 139 TH/MM3 (150-450); RED CELL DISTRIBUTION WIDTH 19.6 % (11.6-17.2); WHITE BLOOD COUNT 8.8 TH/MM3 (4.0-11.0)
--- NOTE | 2017-04-05 14:18 | RADRPT ---
EXAM DATE/TIME: 04/05/2017 14:00 [place] COMPARISON: No previous studies available for comparison. INDICATIONS : Shortness of breath. MEDICAL HISTORY : A-fib. Bronchitis. SURGICAL HISTORY : None. ENCOUNTER: Initial ACUITY: 3 days PAIN SCORE: 0/10 LOCATION: Bilateral chest FINDINGS: PA and lateral views of the chest demonstrate the lungs to be symmetrically aerated without evidence of mass, infiltrate or effusion. Mild atherosclerotic changes are present in the aorta. There is mild scarring. The cardiomediastinal contours are unremarkable. Osseous structures are intact. CONCLUSION: No acute disease. Myke Townsend MD on April 05, 2017 at 14:15 Board Certified Radiologist. This report was verified electronically.
[2017-04-05 14:26] LABS: BICARBONATE 24.8 MEQ/L (21.0-32.0); CALCIUM 8.6 MG/DL (8.5-10.1); CREATININE 1.43 MG/DL (0.50-1.00)
--- NOTE | 2017-04-05 15:57 | PD ---
HPI Chief Complaint: Respiratory Symptoms Time Seen by Provider: 15:36 Travel History International Travel<30 days: No Contact w/Intl Traveler<30days: No Traveled to known affect area: No History of Present Illness HPI 72-year-old female presents to the emergency department for evaluation of shortness of breath, worse with exertion. She states she can only take a few steps without becoming short of breath. She states this is abnormal for her. Patient was recently admitted for A. fib RVR, bronchitis, acute kidney injury. She was taken off her lisinopril/hydrochlorothiazide due to acute kidney injury. Patient denies any chest pain. No abdominal pain. No nausea, vomiting , diarrhea. She reports a mild, dry cough. No fevers or chills. She denies any history of CHF, COPD. Exertion will exacerbate her symptoms, alleviated with rest. Moderate severity. PFSH Past Medical History Arthritis: No Asthma: No Atrial Fibrillation: Yes Autoimmune Disease: No Heart Rhythm Problems: Yes Cancer: No Cardiovascular Problems: Yes High Cholesterol: Yes Chemotherapy: No Chest Pain: No Congestive Heart Failure: No COPD: No Cerebrovascular Accident: No Diabetes: Yes Patient Takes Glucophage: No Endocrine: Yes Gastrointestinal Disorders: No Genitourinary: Yes (Abnormal labs for kidney function) Headaches: Yes Hypertension: Yes Immune Disorder: No Implanted Vascular Access Dvce: Yes Kidney Stones: No Musculoskeletal: Yes Neurologic: Yes Psychiatric: No Reproductive: No Respiratory: Yes Migraines: Yes Radiation Therapy: No Seizures: No Sleep Apnea: No Thyroid Disease: No Past Surgical History Body Medical Devices: Knee replacements Gynecologic Surgery: Yes (Partial hysterectomy) Hysterectomy: Yes Neurologic Surgery: Yes (LAMINECTOMY) Other Surgery: Yes Social History Alcohol Use: No Tobacco Use: No Substance Use: No Allergies-Medications (Allergen,Severity, Reaction): Coded Allergies: No Known Allergies (Unverified , 04/05/17) Reported Meds & Prescriptions Reported Meds & Active Scripts Active Lopressor (Metoprolol Tartrate) 50 Mg Tab 50 Mg PO Q12HR Cardizem CD 24 HR (Diltiazem CD 24 HR) 180 Mg Caper 180 Mg PO BID Reported Tresiba Flextouch Pen Inj (Insulin Degludec Inj) 600 unit/3 ML Pen 1 Units SQ Eliquis (Apixaban) 5 Mg Tab 5 Mg PO BID Simvastatin 20 Mg Tab 20 Mg PO DAILY Metformin (Metformin HCl) 1,000 Mg Tab 1,000 Mg PO BIDPC Review of Systems Except as stated in HPI: all other systems reviewed are Neg Physical Exam Narrative GENERAL: Well-nourished, well-developed female patient, afebrile. SKIN: Focused skin assessment warm/dry. HEAD: Normocephalic. Atraumatic. EYES: No scleral icterus. No injection or drainage. NECK: Supple, trachea midline. No JVD or lymphadenopathy. CARDIOVASCULAR: Regular rate and rhythm without murmurs, gallops, or rubs. Radial pedal pulses 2+. RESPIRATORY: Breath sounds equal bilaterally. No accessory muscle use. Lungs sounds slightly diminished, but clear to auscultation. GASTROINTESTINAL: Abdomen soft, non-tender, nondistended. MUSCULOSKELETAL: No cyanosis. Patient has bilateral 2+ lower extremity edema. BACK: Nontender without obvious deformity. No CVA tenderness. Data Data Last Documented VS Vital Signs Date Time Temp Pulse Resp B/P (MAP) Pulse Ox O2 Delivery O2 Flow Rate FiO2 04/05/17 15:48 71 24 99 Nasal Cannula 2.00 04/05/17 13:29 99.1 145/67 (93) Orders Orders Complete Blood Count With Diff (04/05/17 13:39) Basic Metabolic Panel (Bmp) (04/05/17 13:39) Chest, Pa & Lat (04/05/17 13:39) B-Type Natriuretic Peptide (04/05/17 13:39) Electrocardiogram (04/05/17 ) Magnesium (Mg) (04/05/17 15:43) Ckmb (Isoenzyme) Profile (04/05/17 15:43) Troponin I (04/05/17 15:43) Furosemide Inj (Lasix Inj) (04/05/17 16:00) Labs Laboratory Tests Test 04/05/17 13:45 White Blood Count 8.8 TH/MM3 Red Blood Count 4.80 MIL/MM3 Hemoglobin 9.5 GM/DL Hematocrit 30.5 % Mean Corpuscular Volume 63.5 FL Mean Corpuscular Hemoglobin 19.7 PG Mean Corpuscular Hemoglobin Concent 31.0 % Red Cell Distribution Width 19.6 % Platelet Count 139 TH/MM3 Mean Platelet Volume 8.5 FL Neutrophils (%) (Auto) 80.7 % Lymphocytes (%) (Auto) 6.8 % Monocytes (%) (Auto) 11.7 % Eosinophils (%) (Auto) 0.5 % Basophils (%) (Auto) 0.3 % Neutrophils # (Auto) 7.1 TH/MM3 Lymphocytes # (Auto) 0.6 TH/MM3 Monocytes # (Auto) 1.0 TH/MM3 Eosinophils # (Auto) 0.0 TH/MM3 Basophils # (Auto) 0.0 TH/MM3 CBC Comment DIFF FINAL Differential Comment Blood Urea Nitrogen 32 MG/DL Creatinine 1.43 MG/DL Random Glucose 107 MG/DL Calcium Level 8.6 MG/DL Sodium Level 139 MEQ/L Potassium Level 4.4 MEQ/L Chloride Level 108 MEQ/L Carbon Dioxide Level 24.8 MEQ/L Anion Gap 6 MEQ/L Estimat Glomerular Filtration Rate 36 ML/MIN Magnesium Level 2.1 MG/DL Total Creatine Kinase 45 U/L Troponin I LESS THAN 0.02 NG/ML B-Type Natriuretic Peptide 202 PG/ML MDM Medical Decision Making Medical Screen Exam Complete: Yes Emergency Medical Condition: Yes Medical Record Reviewed: Yes Differential Diagnosis New-onset CHF versus COPD versus ACS versus pneumonia versus bronchitis Narrative Course 72-year-old female presents to the emergency department for evaluation of shortness of breath with exertion that started 2 days ago. CBC shows slight anemia hemoglobin 9.5, hematocrit 30.5. This appears to be at patient's baseline. BMP shows elevated BUN 32, creatinine 1.43. Magnesium is 2.1. CK is 45. Troponin is less than 0.02. BNP is 202. Chest x-ray shows no acute disease. EKG shows sinus rhythm, heart rate 73, no acute ST changes. Patient is given Lasix 20 mg IV. Discussed the case with my attending physician , Dr. Dela Cruz, recommends admission for new onset CHF, echocardiogram. The patient agrees to this. Diagnosis Primary Impression: New onset of congestive heart failure Admitting Information Admitting Physician Requests: Observation LeoLaurie TESS Apr 05, 2017 15:57
[2017-04-05] MEDS ORDERED: FUROSEMIDE 20 MG/2 ML VIAL IV PUSH ONE (16:00)
[2017-04-05 16:05] LABS: MAGNESIUM 2.1 MG/DL (1.5-2.5)
[2017-04-05 16:07] LABS: TROPONIN I LESS THAN 0.02 NG/ML (0.02-0.05)
[2017-04-05] MEDS ORDERED: ACETAMINOPHEN 325 MG TAB PO ONE (17:45)
[2017-04-05] MEDS ORDERED: SODIUM CHLORIDE 0.9% FLUSH 10 ML FLUSH IV FLUSH PRN (18:30)
[2017-04-05] MEDS ORDERED: GLUCAGON 1 MG/ML VIAL OTHER PRN (18:45)
[2017-04-05] MEDS ORDERED: DEXTROSE 50% IN WATER 50 ML VIAL(D50) IV PUSH PRN (18:45)
--- NOTE | 2017-04-05 18:50 | HHI.HP ---
[facility] Radha Duke M.D. Admission Diagnosis New onset CHF, SOB Diagnoses: Travel History International Travel<30 Days: No Contact w/Intl Traveler <30 Da: No Traveled to Known Affected Are: No History of Present Illness 72-year-old female with a past medical history significant for atrial fibrillation anticoagulated on Eliquis, insulin-dependent diabetes mellitus, hypertension and hyperlipidemia presents to the emergency department for evaluation of shortness of breath. The patient reports the symptoms started approximately 2 days ago. She states she has been sleeping sitting up in a chair because she can't breathe when she lies down. She also complains of severe dyspnea with exertion and states she cannot take more than 2 steps without having to stop and rest to catch her breath. She has had increasing lower extremity edema 2 days. She endorses an associated dry cough. Denies fever/chills or chest pain. No nausea/vomiting. She has no known history of congestive heart failure. Her hydrochlorothiazide was recently stopped secondary to renal insufficiency. Review of Systems Denies fever or chills Denies blurry vision, otorrhea, rhinorrhea Denies sore throat, positive nonproductive cough No chest pain, palpitations, positive shortness of breath No abdominal pain Denies constipation/diarrhea/nausea/vomiting Denies muscle pain/weakness No rashes Past Family Social History Past Medical History Atrial fibrillation anticoagulated on Eliquis Insulin-dependent diabetes mellitus Hypertension Hyperlipidemia Past Surgical History Knee replacement 3 Right femur fracture Partial hysterectomy Laminectomy Reported Medications Reported Meds & Active Scripts Active Lopressor (Metoprolol Tartrate) 50 Mg Tab 50 Mg PO Q12HR Cardizem CD 24 HR (Diltiazem CD 24 HR) 180 Mg Caper 180 Mg PO BID Reported Tresiba Flextouch Pen Inj (Insulin Degludec Inj) 600 unit/3 ML Pen 1 Units SQ Eliquis (Apixaban) 5 Mg Tab 5 Mg PO BID Simvastatin 20 Mg Tab 20 Mg PO DAILY Metformin (Metformin HCl) 1,000 Mg Tab 1,000 Mg PO BIDPC Allergies: Coded Allergies: No Known Allergies (Unverified , 04/05/17) Family History Mother with coronary artery disease. Social History Denies alcohol, tobacco and illicit drugs Physical Exam Vital Signs Vital Signs Date Time Temp Pulse Resp B/P (MAP) Pulse Ox O2 Delivery O2 Flow Rate FiO2 04/05/17 15:48 71 24 99 Nasal Cannula 2.00 04/05/17 13:29 99.1 72 20 145/67 (93) 95 Room Air Physical Exam GENERAL: female sitting up in bed, in mild distress SKIN: No rashes, ecchymoses or lesions. Cool and dry. HEAD: Atraumatic. Normocephalic. No temporal or scalp tenderness. EYES: Pupils equal round and reactive. Extraocular motions intact. No scleral icterus. No injection or drainage. ENT: Nose without bleeding, purulent drainage or septal hematoma. Throat without erythema, tonsillar hypertrophy or exudate. Uvula midline. Airway patent. NECK: Trachea midline. No JVD or lymphadenopathy. Supple, nontender, no meningeal signs. CARDIOVASCULAR: Regular rate and rhythm without murmurs, gallops, or rubs. RESPIRATORY: Clear to auscultation. Breath sounds equal bilaterally. No wheezes , rales, or rhonchi. Use of accessory muscles. GASTROINTESTINAL: Abdomen soft, non-tender, nondistended. No hepato-splenomegaly , or palpable masses. No guarding. MUSCULOSKELETAL: 2+ pitting edema in the bilateral lower extremities. No calf tenderness. NEUROLOGICAL: Awake and alert. Cranial nerves II through XII intact. Motor and sensory grossly within normal limits. Normal speech. Laboratory Laboratory Tests Test 04/05/17 13:45 White Blood Count 8.8 Red Blood Count 4.80 Hemoglobin 9.5 Hematocrit 30.5 Mean Corpuscular Volume 63.5 Mean Corpuscular Hemoglobin 19.7 Mean Corpuscular Hemoglobin Concent 31.0 Red Cell Distribution Width 19.6 Platelet Count 139 Mean Platelet Volume 8.5 Neutrophils (%) (Auto) 80.7 Lymphocytes (%) (Auto) 6.8 Monocytes (%) (Auto) 11.7 Eosinophils (%) (Auto) 0.5 Basophils (%) (Auto) 0.3 Neutrophils # (Auto) 7.1 Lymphocytes # (Auto) 0.6 Monocytes # (Auto) 1.0 Eosinophils # (Auto) 0.0 Basophils # (Auto) 0.0 CBC Comment DIFF FINAL Differential Comment Blood Urea Nitrogen 32 Creatinine 1.43 Random Glucose 107 Calcium Level 8.6 Sodium Level 139 Potassium Level 4.4 Chloride Level 108 Carbon Dioxide Level 24.8 Anion Gap 6 Estimat Glomerular Filtration Rate 36 Magnesium Level 2.1 Total Creatine Kinase 45 Troponin I LESS THAN 0.02 B-Type Natriuretic Peptide 202 Result Diagram: 04/05/17 1345 04/05/17 1345 Caprini VTE Risk Assessment Caprini VTE Risk Assessment: Mod/High Risk (score >= 2) Caprini Risk Assessment Model Point Value = 1 Point Value = 2 Point Value = 3 Point Value = 5 Age 41-60 Minor surgery BMI > 25 kg/m2 Swollen legs Varicose veins or History of unexplained or recurrent spontaneous Oral contraceptives or hormone replacement Sepsis (< 1 month) Serious lung disease, including pneumonia (< 1 month) Abnormal pulmonary function Acute myocardial infarction Congestive heart failure (< 1 month) History of inflammatory bowel disease Medical patient at bed rest Age 61-74 Arthroscopic surgery Major open surgery (> 45 min) Laparoscopic surgery (> 45 min) Malignancy Confined to bed (> 72 hours) Immobilizing plaster cast Central venous access Age >= 75 History of VTE Family history of VTE Factor V Leiden Prothrombin 12303H Lupus anticoagulant Anticardiolipin antibodies Elevated serum homocysteine Heparin-induced thrombocytopenia Other congenital or acquired thrombophilia Stroke (< 1 month) Elective arthroplasty Hip, pelvis, or leg fracture Acute spinal cord injury (< 1 month) Prophylaxis Regimen Total Risk Factor Score Risk Level Prophylaxis Regimen 0-1 Low Early ambulation 2 Moderate Order ONE of the following: *Sequential Compression Device (SCD) *Heparin 5000 units SQ BID 3-4 Higher Order ONE of the following medications: *Heparin 5000 units SQ TID *Enoxaparin/Lovenox 40 mg SQ daily (WT < 150 kg, CrCl > 30 mL/min) *Enoxaparin/Lovenox 30 mg SQ daily (WT < 150 kg, CrCl > 10-29 mL/min) *Enoxaparin/Lovenox 30 mg SQ BID (WT < 150 kg, CrCl > 30 mL/min) AND/OR *Sequential Compression Device (SCD) 5 or more Highest Order ONE of the following medications: *Heparin 5000 units SQ TID (Preferred with Epidurals) *Enoxaparin/Lovenox 40 mg SQ daily (WT < 150 kg, CrCl > 30 mL/min) *Enoxaparin/Lovenox 30 mg SQ daily (WT < 150 kg, CrCl > 10-29 mL/min) *Enoxaparin/Lovenox 30 mg SQ BID (WT < 150 kg, CrCl > 30 mL/min) AND *Sequential Compression Device (SCD) Assessment and Plan Assessment and Plan Assessment/plan: 1. New onset CHF Patient with PND, GONZALEZ and new worsening bilateral lower extremity edema Chest x-ray negative for acute disease, images reviewed by me No previous echo for comparison No history of CHF Yard Foreman is Dr. Daily Echo pending IV Lasix Strict I's and O's Telemetry Supplemental oxygen as needed 2. MICHEL Cr 1.43, was 1.18 on 03/28/17 Monitor renal function Holding IVFs pending ECHO 3. Atrial fibrillation Continue anticoagulation with Eliquis Continue diltiazem, metoprolol Currently rate controlled 4. Insulin-dependent diabetes mellitus SSI Monitor blood glucose 5. Hyperlipidemia Continue home statin FEN Heart healthy diet Electrolytes: monitor and replete prn Callie Bruce MD Apr 05, 2017 18:50
[2017-04-05 19:20] VITALS: BP 173/72; PULSE 76; RESP 16; O2SAT 98
[2017-04-05 21:48] VITALS: BP 132/60; PULSE 78; RESP 18; TEMP 98.2; O2SAT 98
[2017-04-05] MEDS: SODIUM CHLORIDE 0.9% FLUSH 10 ML FLUSH IV FLUSH SCH (21:55)
[2017-04-05] MEDS: APIXABAN 5 MG TABLET PO SCH (21:55)
[2017-04-05] MEDS: DILTIAZEM-CD 180 MG CAP ER PO SCH (21:55)
[2017-04-05] MEDS: METOPROLOL TARTRATE 50 MG TAB PO SCH (21:55)
[2017-04-05] MEDS: INSULIN ASPART SUPPLEMENTAL SCALE SQ SCH (22:58)
[2017-04-06] VITALS (7 sets, daily range): BP systolic 121–148; BP diastolic 56–65; PULSE 56–74; RESP 18; TEMP 98.3–99.1; O2SAT 94–97
[2017-04-06] MEDS ORDERED: ACETAMIN 325 MG/BUTALBITAL 50 MG/CAFFEINE 40 MG TAB PO ONE (01:00)
[2017-04-06] MEDS: INSULIN ASPART SUPPLEMENTAL SCALE SQ SCH ×2 (08:00→12:00)
[2017-04-06] MEDS: DILTIAZEM-CD 180 MG CAP ER PO SCH (08:17)
[2017-04-06] MEDS: APIXABAN 5 MG TABLET PO SCH (08:18)
[2017-04-06] MEDS: METOPROLOL TARTRATE 50 MG TAB PO SCH (08:18)
[2017-04-06] MEDS: SODIUM CHLORIDE 0.9% FLUSH 10 ML FLUSH IV FLUSH SCH (08:19)
[2017-04-06 08:55] LABS: BASOPHIL % 0.4 % (0.0-2.0); EOSINOPHIL # 0.1 TH/MM3 (0-0.4); EOSINOPHIL % 0.8 % (0.0-4.0); HEMATOCRIT 28.3 % (35.0-46.0); HEMOGLOBIN 8.8 GM/DL (11.6-15.3); LYMPH % 9.4 % (9.0-44.0); LYMPHOCYTE # 0.7 TH/MM3 (1.0-4.8); MEAN CELL VOLUME 64.2 FL (80.0-100.0); MEAN CORPUSCULAR HEMOGLOBIN 19.9 PG (27.0-34.0); MONO % 10.6 % (0.0-8.0); MONOCYTE # 0.8 TH/MM3 (0-0.9); NEUT % 78.8 % (16.0-70.0); PLATELET COUNT 127 TH/MM3 (150-450); RED BLOOD COUNT 4.41 MIL/MM3 (4.00-5.30); RED CELL DISTRIBUTION WIDTH 19.5 % (11.6-17.2); WHITE BLOOD COUNT 7.6 TH/MM3 (4.0-11.0)
[2017-04-06] MEDS ORDERED: FUROSEMIDE 40 MG/4 ML VIAL IVP SCH (09:00)
[2017-04-06] MEDS ORDERED: PRAVASTATIN SOD 40 MG TAB PO SCH (09:00)
[2017-04-06 09:10] LABS: BICARBONATE 26.3 MEQ/L (21.0-32.0); CALCIUM 8.8 MG/DL (8.5-10.1); CREATININE 1.26 MG/DL (0.50-1.00)
[2017-04-06] MEDS ORDERED: ACETAMINOPHEN/HYDROcodone 325 MG/5 MG TAB PO PRN (09:45)
[2017-04-06] MEDS ORDERED: ACETAMINOPHEN 325 MG TAB PO PRN (09:45)
--- NOTE | 2017-04-06 12:15 | ECHRPT ---
Indication: HEART FAILURE CONCLUSIONS Mildly dilated left ventricle. Wall thickness is normal. The left atrial size is mildly dilated. Mitral annular calcification is present. Trace mitral valve regurgitation. Trace aortic valve regurgitation. There is trace tricuspid valve regurgitation. There is estimated mild pulmonary hypertension present (42 mmHg). The pulmonary valve is not well visualized. BP: / HR: Rhythm: MEASUREMENTS (Male / Female) Normal Values Technical Quality:Good 2D ECHO LV Diastolic Diameter PLAX 5.3 cm 4.2 - 5.9 / 3.9 - 5.3 cm LV Systolic Diameter PLAX 4.3 cm IVS Diastolic Thickness 1.0 cm 0.6 - 1.0 / 0.6 - 0.9 cm LVPW Diastolic Thickness 0.8 cm 0.6 - 1.0 / 0.6 - 0.9 cm LV Relative Wall Thickness 0.3 RV Internal Dim ED PLAX 2.6 cm LA Systolic Diameter LX 4.6 cm 3.0 - 4.0 / 2.7 - 3.8 cm M-MODE AV Cusp Separation MM 1.7 cm DOPPLER AV Peak Velocity 235.0 cm/s AV Peak Gradient 22.1 mmHg LVOT Peak Velocity 148.0 cm/s LVOT Peak Gradient 8.8 mmHg MV Peak Velocity 148.0 cm/s MV Peak Gradient 8.8 mmHg MV Mean Velocity 61.0 cm/s MV Mean Gradient 2.0 mmHg MR Peak Velocity 460.0 cm/s MR Peak Gradient 84.6 mmHg TR Peak Velocity 303.0 cm/s TR Peak Gradient 36.7 mmHg FINDINGS LEFT VENTRICLE Mildly dilated left ventricle. Wall thickness is normal. The left ventricular systolic function is normal with an estimated ejection fraction in the range of 60-65%. RIGHT VENTRICLE Normal right ventricular size and systolic function. LEFT ATRIUM The left atrial size is mildly dilated. RIGHT ATRIUM The right atrial size is normal. ATRIAL SEPTUM Normal atrial septal thickness without atrial level shunting by limited color doppler interrogation. AORTA The aortic root and proximal ascending aorta are normal in size on limited imaging. MITRAL VALVE Mitral annular calcification is present. Trace mitral valve regurgitation. AORTIC VALVE Trace aortic valve regurgitation. TRICUSPID VALVE There is trace tricuspid valve regurgitation. There is estimated mild pulmonary hypertension present (42 mmHg). PULMONARY VALVE The pulmonary valve is not well visualized. VESSELS The inferior vena cava is normal in size. PERICARDIUM No pericardial effusion. Jaya Goldberg MD, FACC (Electronically Signed) Final Date:06 April 2017 12:14
[2017-04-06] MEDS ORDERED: FURO1TAB62 PO (12:53)
[2017-04-06] MEDS ORDERED: FERR324T8 PO (12:53)
[2017-04-06] MEDS ORDERED: SENN8.6T36 PO (12:53)
--- NOTE | 2017-04-06 12:54 | HHI.DCPOC ---
Discharge Care Plan Goals to Promote Your Health * To prevent worsening of your condition and complications * To maintain your health at the optimal level Directions to Meet Your Goals Take your medications as prescribed Follow your dietary instruction Follow activity as directed Keep your appointments as scheduled Take your immunizations and boosters as scheduled If your symptoms worsen call your PCP, if no PCP go to Urgent Care Center or Emergency Room Smoking is Dangerous to Your Health. Avoid second hand smoke Call the 24-hour hour crisis hotline for domestic abuse at Briseida Veronica MD Apr 06, 2017 12:54
--- NOTE | 2017-04-06 13:08 | HHI.PR ---
Subjective Remarks In bed no LE edema, no sob, breathing better. No cp, sob, n/v/d/c. Eating well. No fever or chills. Says she has been on lisinopril but her cardiology Dr has discontinued because of low BP Wants to go home .ECHO with normal EF Objective Vitals Vital Signs Date Time Temp Pulse Resp B/P (MAP) Pulse Ox O2 Delivery O2 Flow Rate FiO2 04/06/17 11:53 99.1 66 18 148/64 (92) 95 04/06/17 08:57 97 Nasal Cannula 2.00 04/06/17 08:13 98.3 74 18 143/63 (89) 95 04/06/17 04:14 98.8 60 18 139/65 (89) 94 04/06/17 02:47 Nasal Cannula 2.00 04/06/17 02:31 56 04/06/17 00:51 65 18 121/56 (77) 95 04/05/17 21:48 98.2 78 18 132/60 (84) 98 04/05/17 19:20 76 16 173/72 (105) 98 Nasal Cannula 2.00 04/05/17 15:48 71 24 99 Nasal Cannula 2.00 04/05/17 13:29 99.1 72 20 145/67 (93) 95 Room Air I/O 04/05/17 04/05/17 04/05/17 04/06/17 04/06/17 04/06/17 07:00 15:00 23:00 07:00 15:00 23:00 Intake Total 350 ml Balance 350 ml Intake Oral 350 ml # Voids 4 Result Diagram: 04/06/17 0736 04/06/17 0736 Imaging Last Impressions Chest X-Ray 04/05/17 1339 Signed Impressions: Service Date/Time: Wednesday, April 05, 2017 14:00 - CONCLUSION: No acute disease. Myke Townsend MD Objective Remarks GENERAL: female sitting up in bed, in mild distress CARDIOVASCULAR: Regular rate and rhythm without murmurs, gallops, or rubs. RESPIRATORY: Clear to auscultation. Breath sounds equal bilaterally. No wheezes , rales, or rhonchi. Use of accessory muscles. GASTROINTESTINAL: Abdomen soft, non-tender, nondistended. No hepato-splenomegaly , or palpable masses. No guarding. MUSCULOSKELETAL: no LE edema. No calf tenderness. NEUROLOGICAL: Awake and alert. Cranial nerves II through XII intact. Motor and sensory grossly within normal limits. Normal speech. A/P Assessment and Plan 1. POss New onset CHF with preserved EF. Patient with PND, GONZALEZ and new worsening bilateral lower extremity edema. BNP is slightly elevated at 200s Chest x-ray negative for acute disease, images reviewed by me No previous echo for comparison No history of CHF Occupational Therapy Professor is Dr. Daily Echo with normal EF 60-70% IV Lasix, give po 20 mg daily at DC Was on lisinopril, was discontinued by her cardiology as low BP. Patient will follow up as OP with her cardiology. Will staert low dose lisinopril, to follow up as OP Strict I's and O's Telemetry Supplemental oxygen as needed Passed O2 walking test 2. MICHEL Cr 1.43, was 1.18 on 03/28/17 Monitor renal function Holding IVFs pending ECHO 3. Atrial fibrillation, rate controlled Continue anticoagulation with Eliquis Continue diltiazem, metoprolol Currently rate controlled 4. Insulin-dependent diabetes mellitus SSI Monitor blood glucose 5. Hyperlipidemia Continue home statin FEN Heart healthy diet Electrolytes: monitor and replete prn Eliquis Discharge Planning DC home in stable condition to follow up as OP with PCP and consultants Meds per med reconciliations Activity ad angel as tolerated. Diet diabetic and healthy heart diet Briseida Veronica MD Apr 06, 2017 13:08
[2017-04-06] MEDS ORDERED: LISI2.5T3 PO (13:41)
--- NOTE | 2017-04-06 16:47 | EKG ---
Date Performed: 04/05/2017 Time Performed: 16:52:45 PTAGE: 72 years EKG: Sinus rhythm Compared to previous tracing, the patient is no longer in atrial fibrillation, and the ST-T wave kulwant nges have normalized NORMAL ECG PREVIOUS TRACING : 03/26/2017 21.20 DOCTOR: Jeremias Carcamo Interpretating Date/Time 04/06/2017 16:47:07
== END 2017-04-06 17:45 | disposition home or self-care (01) ==
LOC: NEPC 13:27 → NEDA 17:27 → NEPGCP 19:44
PROVIDERS: ADMIT Hospitalist; ATTEND Hospitalist
DX: I50.9 Heart failure, unspecified (principal); I11.0 Hypertensive heart disease with heart failure; I48.91 Unspecified atrial fibrillation; N17.9 Acute kidney failure, unspecified; E78.5 Hyperlipidemia, unspecified; E11.9 Type 2 diabetes mellitus without complications; Z79.4 Long term (current) use of insulin; Z79.01 Long term (current) use of anticoagulants; Z90.710 Acquired absence of both cervix and uterus; Z96.659 Presence of unspecified artificial knee joint
CPT/HCPCS: 71046; 80048; 82550; 82948; 83735; 83880; 84484; 85025; 93005; 93306; 94618; 96372; 96374; 96376; 99285; G0378; J1815; J1940

== ENCOUNTER 2017-04-21 13:02 | Emergency (ER) | payer OTHER ==
[~2017-04-21] VITALS: Ht 165.1 cm; Wt 111.2 kg
[~2017-04-21 13:02] MED LIST changes: -BENZ100 PO; +FERR324T8 PO; +FURO1TAB62 PO; +LISI2.5T3 PO; -LISI20TA3 PO; -MAGN400T24; +SENN8.6T36 PO; -VENTAER INH
[2017-04-21 13:14] VITALS: BP 160/59; PULSE 70; RESP 16; TEMP 98.2; O2SAT 99
[2017-04-21] MEDS ORDERED: NOVORP2 SQ (13:44)
[2017-04-21] MEDS ORDERED: MAGN400T2 PO (13:44)
[2017-04-21] MEDS ORDERED: INSU1INJ13 SQ (13:47)
[2017-04-21] MEDS ORDERED: DILT180C36 PO (13:47)
[2017-04-21] MEDS ORDERED: METO-309 PO (13:48)
[2017-04-21 14:06] LABS: AUTOMATED NEUTROPHIL # 5.1 TH/MM3 (1.8-7.7); BASOPHIL % 0.5 % (0.0-2.0); EOSINOPHIL # 0.1 TH/MM3 (0-0.4); EOSINOPHIL % 1.1 % (0.0-4.0); HEMATOCRIT 24.1 % (35.0-46.0); HEMOGLOBIN 7.2 GM/DL (11.6-15.3); LYMPH % 13.9 % (9.0-44.0); LYMPHOCYTE # 0.9 TH/MM3 (1.0-4.8); MEAN CELL VOLUME 64.8 FL (80.0-100.0); MEAN CORPUSCULAR HEMOGLOBIN 19.4 PG (27.0-34.0); MEAN PLATELET VOLUME 8.3 FL (7.0-11.0); MONO % 10.9 % (0.0-8.0); MONOCYTE # 0.7 TH/MM3 (0-0.9); NEUT % 73.6 % (16.0-70.0); PLATELET COUNT 117 TH/MM3 (150-450); RED BLOOD COUNT 3.73 MIL/MM3 (4.00-5.30); RED CELL DISTRIBUTION WIDTH 18.3 % (11.6-17.2); WHITE BLOOD COUNT 6.8 TH/MM3 (4.0-11.0)
[2017-04-21 14:12] LABS: MEAN CORPUSCULAR HGB CONC 29.9 % (32.0-36.0)
[2017-04-21 14:16] LABS: BICARBONATE 25.9 MEQ/L (21.0-32.0); CALCIUM 8.4 MG/DL (8.5-10.1)
[2017-04-21 14:17] LABS: INTERNATIONAL NORMALIZED RATIO 1.2 RATIO
[2017-04-21 14:20] LABS: CREATININE 1.3 MG/DL (0.50-1.00)
--- NOTE | 2017-04-21 14:23 | PD ---
HPI Chief Complaint: Skin Problem Time Seen by Provider: 13:47 Travel History International Travel<30 days: No Contact w/Intl Traveler<30days: No Traveled to known affect area: No History of Present Illness HPI This 9-year-old female is complaining of swelling and bruising of her right leg. She went to the [facility] about a week ago and had an ablation of atrial fibrillation and. It was done via the right groin. She was on Eliquis and did not stop the Eliquis for the procedure she was told to continue it. She has developed swelling and discoloration of the right leg. It has not been weak. She has good sensation in the leg she has recently been having problems with atrial fibrillation and congestive heart failure PFS Past Medical History Arthritis: No Asthma: Yes (childhood asthma) Atrial Fibrillation: Yes (ABLATION 04/10) Autoimmune Disease: No Heart Rhythm Problems: Yes (a-fib ) Cancer: No Cardiovascular Problems: Yes High Cholesterol: Yes Chemotherapy: No Chest Pain: No Congestive Heart Failure: Yes COPD: No Cerebrovascular Accident: No Diabetes: Yes Patient Takes Glucophage: Yes Endocrine: Yes Gastrointestinal Disorders: No Genitourinary: Yes (MICHEL in past) Headaches: Yes Hypertension: Yes Immune Disorder: No Implanted Vascular Access Dvce: Yes Kidney Stones: No Musculoskeletal: No Neurologic: Yes Psychiatric: No Reproductive: No Respiratory: Yes Migraines: Yes Radiation Therapy: No Seizures: No Sleep Apnea: No Thyroid Disease: No Tetanus Vaccination: > 5 Years Influenza Vaccination: Yes Past Surgical History Body Medical Devices: sury knee replacements Gynecologic Surgery: Yes (Partial hysterectomy) Hysterectomy: Yes Neurologic Surgery: Yes (LAMINECTOMY) Other Surgery: Yes Social History Alcohol Use: No Tobacco Use: No (family smokes) Substance Use: No Allergies-Medications (Allergen,Severity, Reaction): Coded Allergies: No Known Allergies (Unverified , 04/21/17) Reported Meds & Prescriptions Reported Meds & Active Scripts Active Senna-Tabs (Sennosides) 8.6 Mg Tab 8.6 Mg PO HS Ferrous Fumarate 324 Mg (106 Mg Iron) Tab 325 Mg PO BID Reported Lopressor (Metoprolol Tartrate) 50 Mg Tab 50 Mg PO BID Tresiba Flextouch Pen Inj (Insulin Degludec Inj) 600 unit/3 ML Pen 1 Units SQ HS Dilt-Xr (Diltiazem HCl) 180 Mg Caper 180 Mg PO DAILY Magnesium Oxide 400 Mg Tab 400 Mg PO DAILY Novolin R Inj (Insulin Human Regular) 1,000 Unit/10 Ml Vial 5-25 Units SQ ACHS Max dose at bedtime:( )units; sugars less than 70,(0) units; sugars 150-199,(5)unit; sugars 200-249,(10)units; sugars 250-299,(15) units; sugars 300-349,(20)units; sugars greater than 349,(25)units Eliquis (Apixaban) 5 Mg Tab 5 Mg PO BID Simvastatin 20 Mg Tab 20 Mg PO DAILY Metformin (Metformin HCl) 1,000 Mg Tab 1,000 Mg PO BIDPC Review of Systems General / Constitutional: No: Fever, Chills Eyes: No: Diploplia, Blurred Vision HENT: No: Headaches, Vertigo Cardiovascular: No: Chest Pain or Discomfort, Palpitations Respiratory: No: Shortness of Breath Skin: Positive Rash Endocrine: No: Heat Intolerance, Cold Intolerance Hematologic/Lymphatic: No: Easy Bruising Physical Exam Narrative GENERAL: [-] SKIN: Focused skin assessment warm/dry. HEAD: Atraumatic. Normocephalic. EYES: Pupils equal and round. No scleral icterus. No injection or drainage. ENT: No nasal bleeding or discharge. Mucous membranes pink and moist. NECK: Trachea midline. No JVD. CARDIOVASCULAR: Regular rate and rhythm. No murmur appreciated. RESPIRATORY: No accessory muscle use. Clear to auscultation. Breath sounds equal bilaterally. GASTROINTESTINAL: Abdomen soft, non-tender, nondistended. Hepatic and splenic margins not palpable. MUSCULOSKELETAL: No obvious deformities. No clubbing. No cyanosis. No edema. There is considerable swelling of the right thigh. There is a fairly firm area medially. There are good distal pulses. There is ecchymosis of the surrounding skin NEUROLOGICAL: Awake and alert. No obvious cranial nerve deficits. Motor grossly within normal limits. Normal speech. PSYCHIATRIC: Appropriate mood and affect; insight and judgment normal. Data Data Last Documented VS Vital Signs Date Time Temp Pulse Resp B/P (MAP) Pulse Ox O2 Delivery O2 Flow Rate FiO2 04/21/17 14:25 71 18 120/54 (76) 99 Room Air 04/21/17 13:14 98.2 Orders Orders Complete Blood Count With Diff (04/21/17 13:53) Basic Metabolic Panel (Bmp) (04/21/17 13:53) Prothrombin Time / Inr (Pt) (04/21/17 13:53) Act Partial Throm Time (Ptt) (04/21/17 13:53) Us Leg Venous Doppler (04/21/17 13:53) Labs Laboratory Tests Test 04/21/17 13:07 White Blood Count 6.8 TH/MM3 Red Blood Count 3.73 MIL/MM3 Hemoglobin 7.2 GM/DL Hematocrit 24.1 % Mean Corpuscular Volume 64.8 FL Mean Corpuscular Hemoglobin 19.4 PG Mean Corpuscular Hemoglobin Concent 29.9 % Red Cell Distribution Width 18.3 % Platelet Count 117 TH/MM3 Mean Platelet Volume 8.3 FL Neutrophils (%) (Auto) 73.6 % Lymphocytes (%) (Auto) 13.9 % Monocytes (%) (Auto) 10.9 % Eosinophils (%) (Auto) 1.1 % Basophils (%) (Auto) 0.5 % Neutrophils # (Auto) 5.1 TH/MM3 Lymphocytes # (Auto) 0.9 TH/MM3 Monocytes # (Auto) 0.7 TH/MM3 Eosinophils # (Auto) 0.1 TH/MM3 Basophils # (Auto) 0.0 TH/MM3 CBC Comment AUTO DIFF Differential Comment AUTO DIFF CONFIRMED Platelet Estimate LOW Platelet Morphology Comment NORMAL Basophilic Stippling FAINT Ovalocytes 1+ Prothrombin Time 12.0 SEC Prothromb Time International Ratio 1.2 RATIO Activated Partial Thromboplast Time 33.1 SEC Blood Urea Nitrogen 29 MG/DL Creatinine 1.30 MG/DL Random Glucose 114 MG/DL Calcium Level 8.4 MG/DL Sodium Level 137 MEQ/L Potassium Level 3.8 MEQ/L Chloride Level 102 MEQ/L Carbon Dioxide Level 25.9 MEQ/L Anion Gap 9 MEQ/L Estimat Glomerular Filtration Rate 40 ML/MIN [facility] Medical Decision Making Medical Screen Exam Complete: Yes Emergency Medical Condition: Yes Medical Record Reviewed: Yes Differential Diagnosis Differential includes hematoma, pseudoaneurysm, DVT Narrative Course Ultrasound shows a pseudoaneurysm with adjacent large hematoma. Case was discussed with Dr. Gant at [facility] and also Dr. Schmidt. Dr. Schmidt will see the patient in his clinic tomorrow Diagnosis Primary Impression: pseudoaneurysm right leg Referrals: Prateek Schmidt MD Additional Instructions: To Dr. Schmidt's office tomorrow Disposition: 01 DISCHARGE HOME Condition: Kyle Barrientos MD Apr 21, 2017 14:23
[2017-04-21 14:25] VITALS: BP 120/54; PULSE 71; RESP 18; O2SAT 99
[2017-04-21 14:30] LABS: OVALOCYTES 1+ (NORMAL)
--- NOTE | 2017-04-21 14:41 | RADRPT ---
EXAM DATE/TIME: 04/21/2017 14:02 [facility] COMPARISON: No previous studies available for comparison. INDICATIONS : Right leg pain S/P right groin after ablation 04/14/17. MEDICAL HISTORY : Hypercholesterolemia. Diabetes CHF, Afib. SURGICAL HISTORY : Hysterectomy. Knee and leg surgery. ENCOUNTER: Initial ACUITY: 1 week PAIN SCORE: 10/10 LOCATION: Right leg. TECHNIQUE: Venous ultrasound of the leg was performed from the inguinal ligament to the proximal calf. Real-time, color Doppler and spectral tracing, compression and augmentation techniques were us ed. FINDINGS: There is normal compressibility of the deep venous system from the inguinal region to the proximal ca lf. No echogenic clot is seen in the lumen of the common femoral, femoral, popliteal, and posterior tibial veins. There is a normal response of the venous system to proximal and distal augmentation an d respiration. There is a pseudoaneurysm in the right groin at the level of the common femoral arter y with a stalk measuring approximately 2.1 cm. There is adjacent large hematoma measuring up to 14.1 x 3.8 x 8.5 cm which demonstrates no color flow. CONCLUSION: 1. No evidence of deep venous thrombosis. 2. Pseudoaneurysm at the level of the common femoral artery with adjacent large hematoma. Myke Townsend MD on April 21, 2017 at 14:34 Board Certified Radiologist. This report was verified electronically.
[2017-04-21 15:24] VITALS: BP 107/48
== END 2017-04-21 15:30 | disposition home or self-care (01) ==
LOC: PHED 13:02
DX: I72.4 Aneurysm of artery of lower extremity (principal); I48.91 Unspecified atrial fibrillation; E78.00 Pure hypercholesterolemia, unspecified; I11.0 Hypertensive heart disease with heart failure; I50.9 Heart failure, unspecified; E11.9 Type 2 diabetes mellitus without complications; Z79.01 Long term (current) use of anticoagulants; Z96.653 Presence of artificial knee joint, bilateral; Z98.890 Other specified postprocedural states; Z79.4 Long term (current) use of insulin; Z79.84 Long term (current) use of oral hypoglycemic drugs
CPT/HCPCS: 80048; 85025; 85610; 85730; 93971

== ENCOUNTER → 2017-05-05 | Outpatient (CLI) | payer OTHER ==
[~2017-05-05] MED LIST changes: -CARD180C5 PO; +DILT180C36 PO; -FURO1TAB62 PO; +FURO40TA PO; -LISI2.5T3 PO; +MAGN400T2 PO; +NOVOLOGP2 SQ; +NOVORP2 SQ
[2017-05-05 14:12] LABS: HEMATOCRIT 24.5 % (35.0-46.0); HEMOGLOBIN 7.7 GM/DL (11.6-15.3); MEAN CELL VOLUME 66.4 FL (80.0-100.0); MEAN CORPUSCULAR HEMOGLOBIN 20.7 PG (27.0-34.0); MEAN CORPUSCULAR HGB CONC 31.2 % (32.0-36.0); MEAN PLATELET VOLUME 8.5 FL (7.0-11.0); PLATELET COUNT 139 TH/MM3 (150-450); RED CELL DISTRIBUTION WIDTH 22.1 % (11.6-17.2); WHITE BLOOD COUNT 4.7 TH/MM3 (4.0-11.0)
[2017-05-05 14:19] LABS: INTERNATIONAL NORMALIZED RATIO 1.2 RATIO
[2017-05-05 14:40] LABS: BICARBONATE 28.4 MEQ/L (21.0-32.0); CALCIUM 8.6 MG/DL (8.5-10.1); CREATININE 1.41 MG/DL (0.50-1.00)
--- NOTE | 2017-05-05 15:10 | RADRPT ---
EXAM DATE/TIME: 05/05/2017 14:38 [facility] COMPARISON: US LEG RIGHT VENOUS DOPPLER, April 21, 2017, 14:02. CHEST PA & LAT, April 05, 2017, 14:00. INDICATIONS : Evaluate for pneumonia, pneumothorax, or communicable disease. Pseudoaneurysm repair. MEDICAL HISTORY : None. SURGICAL HISTORY : None. ENCOUNTER: Initial ACUITY: 1 day PAIN SCORE: 0/10 LOCATION: Bilateral chest FINDINGS: The heart is mildly enlarged. The lungs demonstrate chronic interstitial changes but are otherwise cl ear. There are degenerative changes within the thoracic spine. The remainder the osseous structures a re intact. CONCLUSION: 1. Cardiomegaly. 2. Chronic interstitial changes. 3. Stable compared to prior dated 04/05/17. Chaitanya Shukla MD on May 05, 2017 at 15:06 Board Certified Radiologist. This report was verified electronically.
[2017-05-05 15:37] LABS: BLOOD, URINE NEG (NEG); GLUCOSE,URINE NEG (NEG); HYALINE CAST, URINE 4 /lpf (RARE); KETONE, URINE NEG (NEG); NITRITE,URINE NEG (NEG); SQUAMOUS EPITHELIAL CELL URINE <1 /hpf (0-5); URINE COLOR DARK-YELLOW (YELLW/STRAW); URINE LEUKOCYTE ESTERASE TRACE (NEG)
[2017-05-05 15:38] LABS: BILIRUBIN, URINE NEG (NEG)
== END ==
LOC: CPRE 13:07
PROVIDERS: ATTEND Surgery
DX: Z01.810 Encounter for preprocedural cardiovascular examination (principal); Z01.811 Encounter for preprocedural respiratory examination; Z01.812 Encounter for preprocedural laboratory examination; Z01.818 Encounter for other preprocedural examination; I72.4 Aneurysm of artery of lower extremity
CPT/HCPCS: 36415; 71046; 80048; 81001; 85027; 85610; 85730

== ENCOUNTER → 2017-08-14 | Outpatient (CLI) | payer OTHER ==
[~2017-08-14] MED LIST changes: -FERR324T8 PO; -NOVORP2 SQ
--- NOTE | 2017-08-19 09:06 | RSPPFT ---
DATE OF PROCEDURE: 08/14/17 COMMENTS: Spirometry shows FVC of 2.0 at 68% of predicted, FEV1 of 1.5 at 70%, FEV1/FVC ratio is normal. Flow is normal at FEF 25, FEF 50, FEF 75 and FEF 25-75. There is no response after bronchodilator treatment. Lung volumes show residual volume is decreased. TLC is decreased. Diffusion capacity is mildly decreased. Flow volume loop indicates a normal pattern. IMPRESSION: 1. Mild restrictive lung disease. 2. No response after bronchodilator treatment. 3. Decreased lung volumes. 4. Decreased diffusion capacity.
== END ==
LOC: PHRSP 09:12
PROVIDERS: ATTEND Specialist
DX: J44.9 Chronic obstructive pulmonary disease, unspecified (principal)
CPT/HCPCS: 94060; 94726; 94729